=== PATIENT | male | born 1950 | race Caucasian/White ===

== ENCOUNTER 2019-11-30 10:22 | Outpatient (REF) | payer MEDICARE, OTHER, SELFPAY ==
[2019-11-30 13:44] LABS: MANUAL DIFF FLAG NO
[2019-11-30 13:55] LABS: Eosinophils Absolute Auto 0.1 X10*3/uL (0.0-0.4); Eosinophils Percent Auto 2.6 % (0-4); Hematocrit 43.1 % (42-52); Hemoglobin 14.3 g/dl (14.0-18.0); Imm Gran Abs Auto 0.04 X10*3/uL (0.00-0.03); Imm Gran Pct Auto 0.9 % (0.0-0.4); Lymphocytes Absolute Auto 1.1 X10*3/uL (1.2-4.9); Mean Corpuscular HGB Conc 33.2 g/dl (31.0-36.0); Mean Corpuscular Hemoglobin 29.5 pg (27.0-33.0); Mean Corpuscular Volume 88.9 fL (80-98); Mean Platelet Volume 11.1 fL (9.4-12.4); Monocytes Absolute Auto 0.3 X10*3/uL (0.1-1.2); Monocytes Percent Auto 6.9 % (2-11); Neutrophils Absolute Auto 3.1 X10*3/uL (2.0-8.3); Neutrophils Percent Auto 65.6 % (45-73); Platelet Count 180 X10*3/uL (160-400); Red Blood Count 4.85 X10*6/uL (4.60-5.80); Red Cell Distribution Width 12.2 % (11.0-16.0); White Blood Count 4.7 X10*3/uL (4.8-10.8)
[2019-11-30 14:21] LABS: Creatinine Urine 108.57 mg/dL; Microalbum/Creatinine Ratio Ur 9.2 ug/mg cr
[2019-11-30 14:25] LABS: Alanine Aminotransferase 38 U/L (0-40); Albumin Level 4.5 g/dL (3.5-5.0); Alkaline Phosphatase 79 U/L (39-117); Anion Gap 10 (12-20); Aspartate Amino Transferase 24 U/L (5-37); Bilirubin Total 0.6 mg/dL (0.0-1.0); Blood Urea Nitrogen 13 mg/dL (9-16); Carbon Dioxide 31 mmol/L (22-29); Chloride 103 mmol/L (96-108); Estimated Glomerular Filt Rate > 60; Glucose Random 183 mg/dL (60-115); Potassium 4.4 mmol/l (3.3-5.1); Sodium 140 mmol/L (135-145); Total Protein 7.3 g/dL (6.5-8.0)
[2019-11-30 14:29] LABS: Estimated Average Glucose 163 mg/dL; Hemoglobin A1c % 7.3 %
[2019-11-30 14:32] LABS: Calcium 9.2 mg/dL (8.4-10.2)
== END 2019-11-30 10:23 | disposition home or self-care (01) ==
LOC: HO.10HDL 10:22
PROVIDERS: Visit Provider Internal Medicine
DX: E11.9 Type 2 diabetes mellitus without complications (principal); I10 Essential (primary) hypertension; E78.00 Pure hypercholesterolemia, unspecified
CPT/HCPCS: 36415; 80053; 82043; 83036; 85025

== ENCOUNTER 2020-03-14 10:06 | Outpatient (REF) | payer MEDICARE, OTHER, SELFPAY ==
[2020-03-14 13:40] LABS: MANUAL DIFF FLAG NO
[2020-03-14 13:49] LABS: Basophils Percent Auto 0.2 % (0-2); Eosinophils Absolute Auto 0.1 X10*3/uL (0.0-0.4); Eosinophils Percent Auto 1.6 % (0-4); Hematocrit 42.8 % (42-52); Hemoglobin 14.4 g/dl (14.0-18.0); Imm Gran Abs Auto 0.02 X10*3/uL (0.00-0.03); Imm Gran Pct Auto 0.4 % (0.0-0.4); Lymphocytes Absolute Auto 1.3 X10*3/uL (1.2-4.9); Lymphocytes Percent Auto 25.6 % (20-40); Mean Corpuscular HGB Conc 33.6 g/dl (31.0-36.0); Mean Corpuscular Hemoglobin 29.8 pg (27.0-33.0); Mean Corpuscular Volume 88.6 fL (80-98); Mean Platelet Volume 10.8 fL (9.4-12.4); Monocytes Absolute Auto 0.3 X10*3/uL (0.1-1.2); Monocytes Percent Auto 5.9 % (2-11); Neutrophils Absolute Auto 3.2 X10*3/uL (2.0-8.3); Neutrophils Percent Auto 66.3 % (45-73); Platelet Count 167 X10*3/uL (160-400); Red Blood Count 4.83 X10*6/uL (4.60-5.80); Red Cell Distribution Width 11.9 % (11.0-16.0); White Blood Count 4.9 X10*3/uL (4.8-10.8)
[2020-03-14 13:55] LABS: Estimated Average Glucose 180 mg/dL; Hemoglobin A1c % 7.9 %
[2020-03-14 14:09] LABS: Glucose Urine UA NEG (NEG); Leukocyte Esterase Urine NEG (NEG); Nitrite Urine NEG (NEG); PH 5.5 (5.0-8.0); Specific Gravity - Urine >= 1.030 (1.005-1.025); Urine Blood NEG (NEG); Urine Ketones NEG (NEG); Urine Protein NEG (NEG-TRACE)
[2020-03-14 14:13] LABS: Appearance Urine CLEAR; Color Urine YELLOW
[2020-03-14 14:23] LABS: Alanine Aminotransferase 27 U/L (0-40); Albumin Level 4.5 g/dL (3.5-5.0); Alkaline Phosphatase 72 U/L (39-117); Anion Gap 11 (12-20); Aspartate Amino Transferase 17 U/L (5-37); Blood Urea Nitrogen 14 mg/dL (9-16); Calcium 8.8 mg/dL (8.4-10.2); Carbon Dioxide 30 mmol/L (22-29); Chloride 104 mmol/L (96-108); Cholesterol 170 mg/dL; Estimated Glomerular Filt Rate > 60; Glucose Fasting 170 mg/dL (60-99); HDL Cholesterol 38 mg/dL; LDL Cholesterol Calculated 107 mg/dl; Potassium 4.2 mmol/L (3.3-5.1); Sodium 141 mmol/L (135-145); Total Protein 7.1 g/dL (6.5-8.0); Triglycerides 129 mg/dL
[2020-03-14 14:29] LABS: Creatinine Urine 97.33 mg/dL; Microalbum/Creatinine Ratio Ur 10.2 ug/mg cr
[2020-03-14 14:44] LABS: Prostate Specific Antigen Scr 0.34 ng/mL (<0.05-4.0)
== END 2020-03-14 10:07 | disposition home or self-care (01) ==
LOC: HO.10HDL 10:06
PROVIDERS: Visit Provider Internal Medicine
DX: E11.9 Type 2 diabetes mellitus without complications (principal); E78.5 Hyperlipidemia, unspecified; R35.1 Nocturia; Z12.5 Encounter for screening for malignant neoplasm of prostate
CPT/HCPCS: 36415; 80053; 80061; 81003; 82043; 83036; 84153; 85025

== ENCOUNTER 2020-07-18 10:17 | Outpatient (REF) | payer MEDICARE, OTHER, SELFPAY ==
[2020-07-18 12:32] LABS: Estimated Average Glucose 171 mg/dL; Hemoglobin A1c % 7.6 %
[2020-07-18 13:09] LABS: Alanine Aminotransferase 28 U/L (0-40); Albumin Level 4.5 g/dL (3.5-5.0); Alkaline Phosphatase 81 U/L (39-117); Anion Gap 15 (12-20); Aspartate Amino Transferase 20 U/L (5-37); Bilirubin Total 0.6 mg/dL (0.0-1.0); Blood Urea Nitrogen 18 mg/dL (9-16); Calcium 9.3 mg/dL (8.4-10.2); Carbon Dioxide 25 mmol/L (22-29); Chloride 106 mmol/L (96-108); Estimated Glomerular Filt Rate > 60; Glucose Random 170 mg/dL (60-115); Potassium 4.3 mmol/L (3.3-5.1); Sodium 142 mmol/L (135-145); Total Protein 7.3 g/dL (6.5-8.0)
== END 2020-07-18 10:18 | disposition home or self-care (01) ==
LOC: HO.HMGCLDS 10:17
PROVIDERS: PCP Internal Medicine; Visit Provider Internal Medicine
DX: E11.9 Type 2 diabetes mellitus without complications (principal); E55.9 Vitamin D deficiency, unspecified; E78.00 Pure hypercholesterolemia, unspecified
CPT/HCPCS: 36415; 80053; 83036

== ENCOUNTER 2020-10-17 10:16 | Outpatient (REF) | payer MEDICARE, OTHER, SELFPAY ==
[2020-10-17 13:37] LABS: MANUAL DIFF FLAG NO
[2020-10-17 13:42] LABS: Basophils Percent Auto 0.4 % (0-2); Eosinophils Absolute Auto 0.1 X10*3/uL (0.0-0.4); Eosinophils Percent Auto 2.4 % (0-4); Hematocrit 41.1 % (42-52); Hemoglobin 13.7 g/dl (14.0-18.0); Imm Gran Abs Auto 0.04 X10*3/uL (0.00-0.03); Imm Gran Pct Auto 0.8 % (0.0-0.4); Lymphocytes Absolute Auto 1.3 X10*3/uL (1.2-4.9); Lymphocytes Percent Auto 25.5 % (20-40); Mean Corpuscular HGB Conc 33.3 g/dl (31.0-36.0); Mean Corpuscular Hemoglobin 29.3 pg (27.0-33.0); Mean Platelet Volume 10.9 fL (9.4-12.4); Monocytes Absolute Auto 0.4 X10*3/uL (0.1-1.2); Monocytes Percent Auto 7.7 % (2-11); Neutrophils Absolute Auto 3.1 X10*3/uL (2.0-8.3); Neutrophils Percent Auto 63.2 % (45-73); Platelet Count 160 X10*3/uL (160-400); Red Blood Count 4.67 X10*6/uL (4.60-5.80); Red Cell Distribution Width 12.8 % (11.0-16.0); White Blood Count 4.9 X10*3/uL (4.8-10.8)
[2020-10-17 13:57] LABS: Alanine Aminotransferase 33 U/L (0-40); Albumin Level 4.4 g/dL (3.5-5.0); Alkaline Phosphatase 70 U/L (39-117); Anion Gap 11 (12-20); Aspartate Amino Transferase 18 U/L (5-37); Bilirubin Total 0.7 mg/dL (0.0-1.0); Blood Urea Nitrogen 17 mg/dL (9-16); Calcium 9.2 mg/dL (8.4-10.2); Carbon Dioxide 29 mmol/L (22-29); Chloride 101 mmol/L (96-108); Estimated Glomerular Filt Rate > 60; Glucose Random 198 mg/dL (60-115); Potassium 4.5 mmol/L (3.3-5.1); Sodium 136 mmol/L (135-145)
[2020-10-17 14:19] LABS: Estimated Average Glucose 174 mg/dL; Hemoglobin A1c % 7.7 %
[2020-10-17 14:42] LABS: Creatinine Urine 48.64 mg/dL; Microalbumin Urine < 5.0 mg/L
== END 2020-10-17 10:17 | disposition home or self-care (01) ==
LOC: HO.10HDL 10:16
PROVIDERS: Visit Provider Internal Medicine
DX: E11.9 Type 2 diabetes mellitus without complications (principal); E78.00 Pure hypercholesterolemia, unspecified
CPT/HCPCS: 36415; 80053; 82043; 83036; 85025

== ENCOUNTER 2021-03-05 09:18 | Outpatient (REF) | payer MEDICARE, OTHER, SELFPAY ==
[2021-03-05 10:35] LABS: MANUAL DIFF FLAG NO
[2021-03-05 10:44] LABS: Basophils Percent Auto 0.5 % (0-2); Eosinophils Absolute Auto 0.1 X10*3/uL (0.0-0.4); Eosinophils Percent Auto 2.5 % (0-4); Hematocrit 42.7 % (42.0-52.0); Hemoglobin 14.2 g/dl (14.0-18.0); Imm Gran Abs Auto 0.01 X10*3/uL (0.00-0.03); Imm Gran Pct Auto 0.2 % (0.0-0.4); Lymphocytes Absolute Auto 1.4 X10*3/uL (1.2-4.9); Lymphocytes Percent Auto 30.9 % (20-40); Mean Corpuscular HGB Conc 33.3 g/dl (31.0-36.0); Mean Corpuscular Hemoglobin 29.2 pg (27.0-33.0); Mean Corpuscular Volume 87.7 fL (80.0-98.0); Mean Platelet Volume 10.6 fL (9.4-12.4); Monocytes Absolute Auto 0.3 X10*3/uL (0.1-1.2); Neutrophils Absolute Auto 2.6 x10*3/uL (2.0-8.3); Neutrophils Percent Auto 58.9 % (45-73); Platelet Count 162 X10*3/uL (160-400); Red Blood Count 4.87 X10*6/uL (4.60-5.80); Red Cell Distribution Width 12.2 % (11.0-16.0); White Blood Count 4.4 X10*3/uL (4.8-10.8)
[2021-03-05 11:02] LABS: Creatinine Urine 168.14 mg/dL; Microalbum/Creatinine Ratio Ur 8.3 ug/mg cr
[2021-03-05 11:29] LABS: Alanine Aminotransferase 37 U/L (0-40); Albumin Level 4.3 g/dL (3.5-5.0); Alkaline Phosphatase 73 U/L (39-117); Anion Gap 14 (12-20); Aspartate Amino Transferase 21 U/L (5-37); Bilirubin Total 0.9 mg/dL (0.0-1.0); Blood Urea Nitrogen 16 mg/dL (9-16); Calcium 9.2 mg/dL (8.4-10.2); Carbon Dioxide 26 mmol/L (22-29); Chloride 104 mmol/L (96-108); Cholesterol 209 mg/dL; Estimated Glomerular Filt Rate > 60; Glucose Fasting 235 mg/dL (60-99); HDL Cholesterol 41 mg/dL; LDL Cholesterol Calculated 150 mg/dl; Potassium 4.4 mmol/L (3.3-5.1); Sodium 140 mmol/L (135-145); Total Protein 7.2 g/dL (6.5-8.0); Triglycerides 94 mg/dL
[2021-03-05 11:35] LABS: Estimated Average Glucose 186 mg/dL; Hemoglobin A1c % 8.1 %
[2021-03-05 11:54] LABS: Prostate Specific Antigen Scr 0.29 ng/mL (<0.05-4.0)
== END 2021-03-05 09:19 | disposition home or self-care (01) ==
LOC: HO.10HDL 09:18
PROVIDERS: Visit Provider Internal Medicine
DX: Z12.5 Encounter for screening for malignant neoplasm of prostate (principal); E11.9 Type 2 diabetes mellitus without complications; E78.00 Pure hypercholesterolemia, unspecified
CPT/HCPCS: 36415; 80053; 80061; 82043; 83036; 84153; 85025

== ENCOUNTER 2021-06-23 10:37 | Outpatient (REF) | payer MEDICARE, OTHER, SELFPAY ==
[2021-06-23 13:53] LABS: MANUAL DIFF FLAG NO
[2021-06-23 13:59] LABS: Basophils Percent Auto 0.5 % (0-2); Eosinophils Absolute Auto 0.1 X10*3/uL (0.0-0.4); Eosinophils Percent Auto 1.4 % (0-4); Hematocrit 42.8 % (42.0-52.0); Hemoglobin 14.3 g/dl (14.0-18.0); Imm Gran Abs Auto 0.03 X10*3/uL (0.00-0.03); Imm Gran Pct Auto 0.7 % (0.0-0.4); Lymphocytes Absolute Auto 1.2 X10*3/uL (1.2-4.9); Lymphocytes Percent Auto 28.8 % (20-40); Mean Corpuscular HGB Conc 33.4 g/dl (31.0-36.0); Mean Corpuscular Hemoglobin 29.7 pg (27.0-33.0); Mean Corpuscular Volume 88.8 fL (80.0-98.0); Mean Platelet Volume 11.2 fL (9.4-12.4); Monocytes Absolute Auto 0.3 X10*3/uL (0.1-1.2); Monocytes Percent Auto 7.1 % (2-11); Neutrophils Absolute Auto 2.6 x10*3/uL (2.0-8.3); Neutrophils Percent Auto 61.5 % (45-73); Platelet Count 173 X10*3/uL (160-400); Red Blood Count 4.82 X10*6/uL (4.60-5.80); Red Cell Distribution Width 12.1 % (11.0-16.0); White Blood Count 4.2 X10*3/uL (4.8-10.8)
[2021-06-23 14:11] LABS: Estimated Average Glucose 171 mg/dL; Hemoglobin A1c % 7.6 %
[2021-06-23 14:23] LABS: Alanine Aminotransferase 35 U/L (0-40); Albumin Level 4.4 g/dL (3.5-5.0); Alkaline Phosphatase 75 U/L (39-117); Anion Gap 12 (12-20); Aspartate Amino Transferase 19 U/L (5-37); Bilirubin Total 0.7 mg/dL (0.0-1.0); Blood Urea Nitrogen 18 mg/dL (9-16); Calcium 9.7 mg/dL (8.4-10.2); Carbon Dioxide 28 mmol/L (22-29); Chloride 105 mmol/L (96-108); Cholesterol 171 mg/dL; Estimated Glomerular Filt Rate > 60; Glucose Random 208 mg/dL (60-115); HDL Cholesterol 40 mg/dL; LDL Cholesterol Calculated 114 mg/dl; Potassium 4.5 mmol/L (3.3-5.1); Sodium 140 mmol/L (135-145); Total Protein 7.3 g/dL (6.5-8.0); Triglycerides 89 mg/dL
[2021-06-23 14:27] LABS: Creatinine Urine 131.19 mg/dL
[2021-06-23 14:47] LABS: Vitamin B12 549 pg/mL (200-900)
== END 2021-06-23 10:38 | disposition home or self-care (01) ==
LOC: HO.HMGCLDS 10:37
PROVIDERS: Visit Provider Internal Medicine
DX: E11.9 Type 2 diabetes mellitus without complications (principal); E78.00 Pure hypercholesterolemia, unspecified
CPT/HCPCS: 36415; 80053; 80061; 82043; 82607; 83036; 85025

== ENCOUNTER 2021-11-20 10:11 | Outpatient (REF) | payer MEDICARE, OTHER, SELFPAY ==
[2021-11-20 11:17] LABS: MANUAL DIFF FLAG NO
[2021-11-20 11:35] LABS: Basophils Percent Auto 0.7 % (0-2); Eosinophils Absolute Auto 0.1 X10*3/uL (0.0-0.4); Eosinophils Percent Auto 2.4 % (0-4); Hematocrit 41.9 % (42.0-52.0); Hemoglobin 14.3 g/dl (14.0-18.0); Imm Gran Abs Auto 0.02 X10*3/uL (0.00-0.03); Imm Gran Pct Auto 0.4 % (0.0-0.4); Lymphocytes Absolute Auto 1.2 X10*3/uL (1.2-4.9); Lymphocytes Percent Auto 26.5 % (20-40); Mean Corpuscular HGB Conc 34.1 g/dl (31.0-36.0); Mean Corpuscular Hemoglobin 29.8 pg (27.0-33.0); Mean Corpuscular Volume 87.3 fL (80.0-98.0); Mean Platelet Volume 10.9 fL (9.4-12.4); Monocytes Absolute Auto 0.3 X10*3/uL (0.1-1.2); Monocytes Percent Auto 7.4 % (2-11); Neutrophils Absolute Auto 2.9 x10*3/uL (2.0-8.3); Neutrophils Percent Auto 62.6 % (45-73); Platelet Count 163 X10*3/uL (160-400); Red Cell Distribution Width 12.1 % (11.0-16.0); White Blood Count 4.6 X10*3/uL (4.8-10.8)
[2021-11-20 11:42] LABS: Estimated Average Glucose 200 mg/dL; Hemoglobin A1c % 8.6 %
[2021-11-20 12:00] LABS: Creatinine Urine 91.26 mg/dL; Microalbum/Creatinine Ratio Ur 5.4 ug/mg cr
[2021-11-20 12:03] LABS: Alanine Aminotransferase 33 U/L (0-40); Albumin Level 4.5 g/dL (3.5-5.0); Alkaline Phosphatase 75 U/L (39-117); Anion Gap 13 (12-20); Aspartate Amino Transferase 20 U/L (5-37); Bilirubin Total 0.7 mg/dL (0.0-1.0); Blood Urea Nitrogen 15 mg/dL (9-16); Calcium 9.4 mg/dL (8.4-10.2); Carbon Dioxide 29 mmol/L (22-29); Chloride 101 mmol/L (96-108); Estimated Glomerular Filt Rate > 60; Glucose Random 199 mg/dL (60-115); Potassium 4.4 mmol/L (3.3-5.1); Sodium 139 mmol/L (135-145); Total Protein 7.1 g/dL (6.5-8.0)
== END 2021-11-20 10:12 | disposition home or self-care (01) ==
LOC: HO.HMGCLDS 10:11
PROVIDERS: PCP Internal Medicine; Visit Provider Internal Medicine
DX: E78.00 Pure hypercholesterolemia, unspecified (principal); E11.40 Type 2 diabetes mellitus with diabetic neuropathy, unspecified
CPT/HCPCS: 36415; 80053; 82043; 83036; 85025

== ENCOUNTER 2022-02-27 07:37 | Outpatient (REF) | payer MEDICARE, OTHER, SELFPAY ==
[2022-02-27 11:30] LABS: Anion Gap 9 (12-20); Blood Urea Nitrogen 11 mg/dL (9-16); Carbon Dioxide 31 mmol/L (22-29); Chloride 104 mmol/L (96-108); Estimated Glomerular Filt Rate > 60; Glucose Random 254 mg/dL (60-115); Sodium 140 mmol/L (135-145)
[2022-02-27 11:40] LABS: Estimated Average Glucose 223 mg/dL; Hemoglobin A1c % 9.4 %; Total Hemoglobin (HGBA1C) 3621.3587 umol/L
== END 2022-02-27 07:38 | disposition home or self-care (01) ==
LOC: HO.HMGCLDS 07:37
PROVIDERS: PCP Internal Medicine; Visit Provider Internal Medicine
DX: E11.9 Type 2 diabetes mellitus without complications (principal); E78.00 Pure hypercholesterolemia, unspecified
CPT/HCPCS: 36415; 80048; 83036

== ENCOUNTER 2022-03-06 09:28 | Outpatient (REF) | payer MEDICARE, OTHER, SELFPAY ==
--- NOTE | ~2022-03-06 | XR_ITS ---
EXAMINATION: XR KNEE, LEFT CLINICAL INFORMATION: Left knee pain and swelling COMPARISON: None TECHNIQUE: Four views of the left knee. FINDINGS: There is narrowing of the medial joint space compartment with some articular surface irregularity. There is a region of lucency about the distal medial femoral condyle which may represent an osteochondral defect donor site however I do not see a fragment on the provided imaging. There is prominent spurring at the patellofemoral joint. There is a left knee effusion. No acute fracture or dislocation evident. XR/XR knee LT 4V IMPRESSION: Degenerative change of the medial and patellofemoral joint spaces. Left knee effusion.
== END 2022-03-06 09:29 | disposition home or self-care (01) ==
LOC: HO.HMGCX 09:28
PROVIDERS: PCP Internal Medicine; Visit Provider Internal Medicine
DX: M25.562 Pain in left knee (principal)
CPT/HCPCS: 73564

== ENCOUNTER 2022-04-09 | Outpatient (REF) | payer MEDICARE, OTHER, SELFPAY ==
--- NOTE | ~2022-04-09 | XR_ITS ---
EXAMINATION: XR KNEE AP STANDING XR KNEE, LEFT AXIAL CLINICAL INFORMATION: Pain. COMPARISON: Radiographs dated 03/06/2022. TECHNIQUE: AP bilateral standing view of the knees was obtained. An axial view of the left knee was obtained. FINDINGS: Bony alignment and mineralization are normal. There is moderately severe narrowing of the bilateral medial joint space space compartments. There is mild narrowing of the lateral left joint space compartment. The left patellofemoral compartment is well-maintained. There is peripheral osteophyte formation of the bilateral lateral and medial joint space compartments and of the left patellofemoral compartment. No fracture or dislocation is seen. There is a mild bilateral valgus configuration. No foreign body is noted. XR/XR knee standing BI IMPRESSION: 1. There is tricompartment osteoarthritic change of the left knee, most pronounced of the medial joint space compartment, where it is severe. 2. There is moderately severe osteoarthritic change of the medial joint space compartment of the right knee. 3. There is a mild bilateral varus configuration.
--- NOTE | ~2022-04-09 | XR_ITS ---
EXAMINATION: XR KNEE AP STANDING XR KNEE, LEFT AXIAL CLINICAL INFORMATION: Pain. COMPARISON: Radiographs dated 03/06/2022. TECHNIQUE: AP bilateral standing view of the knees was obtained. An axial view of the left knee was obtained. FINDINGS: Bony alignment and mineralization are normal. There is moderately severe narrowing of the bilateral medial joint space space compartments. There is mild narrowing of the lateral left joint space compartment. The left patellofemoral compartment is well-maintained. There is peripheral osteophyte formation of the bilateral lateral and medial joint space compartments and of the left patellofemoral compartment. No fracture or dislocation is seen. There is a mild bilateral valgus configuration. No foreign body is noted. XR/XR knee LT 1V IMPRESSION: 1. There is tricompartment osteoarthritic change of the left knee, most pronounced of the medial joint space compartment, where it is severe. 2. There is moderately severe osteoarthritic change of the medial joint space compartment of the right knee. 3. There is a mild bilateral varus configuration.
== END 2022-04-09 00:01 | disposition home or self-care (01) ==
LOC: HO.HOSX
PROVIDERS: Visit Provider Physician Assistant
DX: M17.12 Unilateral primary osteoarthritis, left knee (principal)
CPT/HCPCS: 20610; 73560; 73565; 99202; J1020

== ENCOUNTER 2022-06-01 11:17 | Outpatient (REF) | payer MEDICARE, OTHER, SELFPAY ==
[2022-06-01 14:33] LABS: Estimated Average Glucose 189 mg/dL; Hemoglobin A1c % 8.2 %
[2022-06-01 15:12] LABS: Anion Gap 16 (12-20); Blood Urea Nitrogen 18 mg/dL (9-16); Calcium 9.3 mg/dL (8.4-10.2); Carbon Dioxide 27 mmol/L (22-29); Chloride 104 mmol/L (96-108); Estimated Glomerular Filt Rate > 60; Glucose Random 165 mg/dL (60-115); Potassium 4.7 mmol/L (3.3-5.1); Sodium 142 mmol/L (135-145)
== END 2022-06-01 11:18 | disposition home or self-care (01) ==
LOC: HO.HMGCLDS 11:17
PROVIDERS: PCP Internal Medicine; Visit Provider Internal Medicine
DX: E11.9 Type 2 diabetes mellitus without complications (principal); I10 Essential (primary) hypertension; E78.00 Pure hypercholesterolemia, unspecified
CPT/HCPCS: 36415; 80048; 83036

== ENCOUNTER 2022-06-10 10:48 | Outpatient (REF) | payer MEDICARE, OTHER, SELFPAY ==
[2022-06-10 13:39] LABS: MANUAL DIFF FLAG NO
[2022-06-10 13:44] LABS: Basophils Percent Auto 0.7 % (0-2); Eosinophils Absolute Auto 0.1 X10*3/uL (0.0-0.4); Eosinophils Percent Auto 1.2 % (0-4); Hematocrit 43.4 % (42.0-52.0); Hemoglobin 14.6 g/dl (14.0-18.0); Imm Gran Abs Auto 0.03 X10*3/uL (0.00-0.03); Imm Gran Pct Auto 0.7 % (0.0-0.4); Mean Corpuscular HGB Conc 33.6 g/dl (31.0-36.0); Mean Corpuscular Hemoglobin 30.1 pg (27.0-33.0); Mean Corpuscular Volume 89.5 fL (80.0-98.0); Monocytes Absolute Auto 0.4 X10*3/uL (0.1-1.2); Monocytes Percent Auto 10.6 % (2-11); Neutrophils Absolute Auto 2.5 x10*3/uL (2.0-8.3); Neutrophils Percent Auto 61.8 % (45-73); Platelet Count 168 X10*3/uL (160-400); Red Blood Count 4.85 X10*6/uL (4.60-5.80); Red Cell Distribution Width 12.2 % (11.0-16.0)
[2022-06-10 13:58] LABS: Alanine Aminotransferase 36 U/L (0-40); Albumin Level 4.3 g/dL (3.5-5.0); Alkaline Phosphatase 79 U/L (39-117); Anion Gap 12 (12-20); Aspartate Amino Transferase 18 U/L (5-37); Bilirubin Total 0.9 mg/dL (0.0-1.0); Blood Urea Nitrogen 14 mg/dL (9-16); C Reactive Protein 0.34 mg/dL (< or = 0.50); Calcium 9.1 mg/dL (8.4-10.2); Carbon Dioxide 29 mmol/L (22-29); Chloride 105 mmol/L (96-108); Estimated Glomerular Filt Rate > 60; Glucose Random 249 mg/dL (60-115); Potassium 4.8 mmol/L (3.3-5.1); Sodium 141 mmol/L (135-145); Total Protein 6.8 g/dL (6.5-8.0)
[2022-06-10 14:12] LABS: D Dimer High Sensitivity 547 NG/ML
[2022-06-10 14:15] LABS: Estimated Average Glucose 194 mg/dL; Hemoglobin A1c % 8.4 %
[2022-06-10 14:38] LABS: Troponin-I High Sensitivity 5.6 ng/L (<3.5-35.0)
== END 2022-06-10 10:49 | disposition home or self-care (01) ==
LOC: HO.10HDL 10:48
PROVIDERS: Visit Provider Internal Medicine
DX: Z13.89 Encounter for screening for other disorder (principal)
CPT/HCPCS: 36415; 80053; 82550; 83036; 84484; 85025; 85379; 86140

== ENCOUNTER 2022-06-10 17:11 | Emergency (ER) | payer MEDICARE, OTHER, SELFPAY ==
--- NOTE | ~2022-06-10 | CT_ITS ---
EXAMINATION: CT HEAD WITHOUT CONTRAST CLINICAL INFORMATION: Dizziness. COMPARISON: None available. TECHNIQUE: Contiguous axial imaging was performed from the skull base to vertex without intravenous administration of contrast. This CT examination was performed using dose optimization techniques as appropriate, variously including the following: *Automated exposure control. *Adjustment of mA and/or kV according to patient size (this includes techniques or standardized protocols for targeted exams where dose is matched to indication/reason for exam; i.e. extremities or head). *Use of iterative reconstruction technique. DLP: 784 mGy-cm FINDINGS: There is no evidence of acute intracranial hemorrhage or edematous territorial infarction. Solitario-white matter differentiation is preserved. Scattered and partially confluent hypoattenuation in the periventricular and deep white matter are consistent with moderate microangiopathy. Septum pellucidum cyst, measuring up to 2 cm in diameter. Otherwise, proportional prominence of the ventricles and sulcal spaces without evidence of obstructive hydrocephalus. No abnormal mass effect or midline shift. No extra-axial fluid collections. No acute soft tissue or osseous abnormalities. Mild mucosal thickening of the paranasal sinuses. The mastoid air cells and middle ear cavities are clear. Mild degenerative arthropathy of the temporomandibular joints. CT/CT head/brain wo IV con IMPRESSION: 1. No evidence of acute intracranial hemorrhage or edematous territorial infarction. 2. Moderate underlying microangiopathy and generalized cerebral volume loss.
--- NOTE | ~2022-06-10 | XR_ITS ---
EXAMINATION: XR CHEST CLINICAL INFORMATION: Chest pain COMPARISON: Chest x-ray 06/26/2005 TECHNIQUE: Frontal view of the chest was obtained. FINDINGS: No significant abnormality is noted involving the heart, lungs, mediastinum, bony thorax or soft tissues. XR/XR chest 1V IMPRESSION: Unremarkable chest examination.
--- NOTE | ~2022-06-10 | CT_ITS ---
EXAMINATION: CT ANGIOGRAM OF THE CHEST WITH AND WITHOUT CONTRAST (CT PULMONARY ANGIOGRAM FOR PE) CLINICAL INFORMATION: Reason for Exam + dimer out patient near syncope COMPARISON: None available. TECHNIQUE: Prior to contrast administration, noncontrast localization images were obtained. Subsequently, multidetector volumetric imaging was performed from the thoracic inlet to below the diaphragms following the administration of 80 mL Omnipaque 350 intravenous contrast. No contrast reaction reported Sagittal, coronal, and MIP oblique sagittal reformatted images were obtained on the CT workstation, uploaded to PACS, and reviewed. This CT examination was performed using dose optimization techniques as appropriate, variously including the following: *Automated exposure control *Adjustment of mA and/or kV according to patient size (this includes techniques or standardized protocols for targeted exams where dose is matched to indication/reason for exam; i.e. extremities or head) *Use of iterative reconstruction technique Total exam dose-length product 428 mGy-cm FINDINGS: QUALITY OF STUDY/CONTRAST BOLUS: Satisfactory. PULMONARY ARTERIES: There is good opacification of pulmonary artery and its branches without any intraluminal filling defect or narrowing. THORACIC AORTA: No evidence of aneurysm or dissection. LUNG: No focal consolidation, nodules or masses. PLEURA: No pleural effusion or pneumothorax. MEDIASTINUM: Heart size enlarged. There is no pericardial effusion. No hilar or mediastinal lymph nodes. Central trachea and the bronchi are widely patent. No evidence of septal bowing or right heart strain. CORONARY ARTERY CALCIFICATION: None visualized on this study. CHEST WALL/AXILLA: No axillary or internal mammary lymphadenopathy. OSSEOUS STRUCTURES: No aggressive lytic or sclerotic process seen. There is mild ventral spondylosis and degenerative disc changes throughout dorsal spine. UPPER ABDOMEN: Small hypodense areas are seen in the liver, too small to correctly characterize. Otherwise rest the liver, spleen, pancreas and bilateral adrenal glands are unremarkable. No reflux of contrast into the hepatic veins to suggest elevated right heart pressures. CT/CT angio chest PE protocol IMPRESSION: 1. No evidence of PE. 2. No evidence of aortic dissection or aneurysm. 3. The lungs are clear. VTE: negative
[2022-06-10 18:10] VITALS: BP 175/85; PULSE 74; RESP 18; TEMP 37; O2SAT 95; BMI 31.1
--- NOTE | 2022-06-10 18:58 | ECG_ITS ---
Test Reason : SOB Blood Pressure : / mmHG Vent. Rate : 071 BPM Atrial Rate : 071 BPM P-R Int : 164 ms QRS Dur : 096 ms QT Int : 388 ms P-R-T Axes : 034 -50 031 degrees QTc Int : 421 ms Sinus rhythm with marked sinus arrhythmia Left anterior fascicular block Abnormal ECG No previous ECGs available Referred By: Leo Fontaine Electronically Signed By:James Garcia
--- NOTE | 2022-06-10 19:00 | ED.GENADULT ---
HPI - General Adult General Chief complaint: General Medical <RUSS Martinez - Last Filed: 06/10/22 19:01> Stated complaint: Sent by for CT Scane <RUSS Martinez - Last Filed: 06/10/22 19:01> Time Seen by Provider: 06/10/22 22:14 <RUSS Martinez - Last Filed: 06/10/22 19:01> Source: patient, RN notes reviewed and old records reviewed <Brennen Oliveira - Last Filed: 06/10/22 23:15> Mode of arrival: ambulatory <Brennen Oliveira - Last Filed: 06/10/22 23:15> Limitations: no limitations <Brennen Oliveira - Last Filed: 06/10/22 23:15> History of Present Illness HPI narrative: 71-year-old male with past medical history significant for diabetes, osteoarthritis presents for evaluation of ?I need a CT scan to check for PE. ? Patient reports he has felt unwell for the last week. He has had several episodes where he gets nauseous, lightheaded, short of breath and he nearly passes out. This has not happened the last few days. However he saw his primary doctor last week who ordered blood test. The patient was told to come to the emergency department because ?my D-dimer was high and he wants to make sure I do not have a blood clot. ? The patient has not had any syncopal episodes and he has never had any chest pain in the last month despite the symptoms Currently reports that he feels well but has a mild headache He reports that his D-dimer was 547 as an outpatient <Brennen Oliveira - Last Filed: 06/10/22 23:15> Related Data Home medications: Home Medications Medication Instructions Recorded Confirmed amoxicillin 875 mg-potassium tab PO 04/09/22 clavulanate 125 mg tablet atorvastatin 40 mg tablet mg PO 04/09/22 glipizide 5 mg tablet, extended mg PO 04/09/22 release 24 hr metformin 500 mg tablet mg PO 04/09/22 olanzapine 5 mg tablet mg PO 04/09/22 sertraline 100 mg tablet mg PO 04/09/22 <RUSS Martinez Last Filed: 06/10/22 19:01> Allergies/adverse reactions: Allergies Allergy/AdvReac Type Severity Reaction Status Date / Time No Known Allergies Allergy Verified 06/10/22 18:15 <RUSS Martinez - Last Filed: 06/10/22 19:01> Review of Systems Constitutional: Constitutional: Reports fatigue, Denies fever(s), Reports headache(s), Reports malaise and Reports weakness <Brennen Oliveira - Last Filed: 06/10/22 23:15> ENT: Reports dizziness and Reports headache(s) <Brennen Oliveira - Last Filed: 06/10/22 23:15> Cardiovascular: Cardiovascular: Denies chest pain, Denies chest pain at rest, Denies chest pain with activity, Denies syncope, Denies rapid heart rate, Denies leg edema, Reports lightheadedness and Denies dyspnea <Brennen Oliveira - Last Filed: 06/10/22 23:15> Respiratory: Respiratory: Denies cough and Denies dyspnea <Brennen Oliveira - Last Filed: 06/10/22 23:15> Gastrointestinal: Gastrointestinal: Denies abdominal pain, Reports nausea and Reports vomiting <Brennen Oliveira - Last Filed: 06/10/22 23:15> Musculoskeletal: Musculoskeletal: Reports myalgias, Denies arthralgias and Denies joint swelling <Brennen Oliveira - Last Filed: 06/10/22 23:15> Neurologic: Reports dizziness, Denies syncope, Reports headache(s) and Reports weakness <Brennen Oliveira - Last Filed: 06/10/22 23:15> Endocrine: Endocrine: Reports fatigue <Brennen Oliveira - Last Filed: 06/10/22 23:15> [facility] Past Medical History Medical History: Medical History (Updated 06/10/22 @ 23:15 by Brennen Oliveira) History of high cholesterol Hx of diabetes mellitus <RUSS Martinez - Last Filed: 06/10/22 19:01> Social History Social History: Social History (Updated 04/09/22 @ 08:24 by Renetta Mayer) Alcohol intake: never Patient Tobacco Use Status: Never used Tobacco Smoked in Last 30 Days: No Use of substances other than those prescribed or required for medical reasons: No Advance Directives: No Advance Directives Information Provided: Yes Current occupational status: retired Current occupation: right hand dominant <RUSS Martinez - Last Filed: 06/10/22 19:01> Physical Exam ED Vital Signs: Vital Signs - 24 hr 06/10/22 18:10 06/10/22 22:18 06/10/22 22:43 Temperature 98.6 F 98.6 F Pulse Rate 74 81 71 Respiratory Rate 18 16 Blood Pressure 175/85 H 154/94 H 174/90 H Pulse Oximetry 95 97 Oxygen Delivery Method Room Air Room Air 06/10/22 22:45 06/10/22 22:47 Temperature Pulse Rate 69 82 Respiratory Rate Blood Pressure 162/90 H 164/92 H Pulse Oximetry Oxygen Delivery Method BMI result Body Mass Index 31.1 <RUSS Martinez - Last Filed: 06/10/22 19:01> Vital Signs - 24 hr 06/10/22 18:10 06/10/22 22:18 06/10/22 22:43 Temperature 98.6 F 98.6 F Pulse Rate 74 81 71 Respiratory Rate 18 16 Blood Pressure 175/85 H 154/94 H 174/90 H Pulse Oximetry 95 97 Oxygen Delivery Method Room Air Room Air 06/10/22 22:45 06/10/22 22:47 Temperature Pulse Rate 69 82 Respiratory Rate Blood Pressure 162/90 H 164/92 H Pulse Oximetry Oxygen Delivery Method BMI result Body Mass Index 31.1 <Brennen Oliveira - Last Filed: 06/10/22 23:15> Const General: healthy appearing, comfortable, no acute distress, alert and awake <Brennen Oliveira - Last Filed: 06/10/22 23:15> Nutritional Appearance: well nourished <Brennen Oliveira - Last Filed: 06/10/22 23:15> Orientation/consciousness: patient oriented x3 <Brennen Oliveira - Last Filed: 06/10/22 23:15> HENMT Head: Yes normocephalic and Yes atraumatic <Brennen Oliveira - Last Filed: 06/10/22 23:15> Eyes Eyelids: Yes eyelids normal <Brennen Oliveira - Last Filed: 06/10/22 23:15> Conjunctivae: conjunctivae normal < Last Filed: 06/10/22 23:15> Sclerae: sclerae normal < Last Filed: 06/10/22 23:15> Corneas: corneas normal < Last Filed: 06/10/22 23:15> Pupils: Equal, round and reactive pupils present < Last Filed: 06/10/22 23:15> EOM: EOMs intact bilaterally < Last Filed: 06/10/22 23:15> Neck Neck: Yes full ROM < Last Filed: 06/10/22 23:15> Resp Effort & Inspection: normal respiratory effort, able to speak in complete sentences, no audible wheezes and not labored < Last Filed: 06/10/22 23:15> Auscultation: clear to auscultation bilaterally < Last Filed: 06/10/22 23:15> Cardio Rate: regular rate < Last Filed: 06/10/22 23:15> Rhythm: regular rhythm < Last Filed: 06/10/22 23:15> GI Inspection: No distended < Last Filed: 06/10/22 23:15> Palpation (GI): Soft to palpation, not firm, nontender, no guarding and not rigid < Last Filed: 06/10/22 23:15> Auscultation: normoactive bowel sounds < Last Filed: 06/10/22 23:15> Skin General skin exam: no rashes or lesions noted and elasticity normal < Last Filed: 06/10/22 23:15> Neuro General: patient oriented x3 < Last Filed: 06/10/22 23:15> Cranial nerves: Yes CN's II-XII intact bilaterally, Yes Equal, round and reactive pupils present and Yes Bilaterally intact EOM present < - Last Filed: 06/10/22 23:15> Cognition (Neuro): normal cognition <Brennen Oliveira - Last Filed: 06/10/22 23:15> Coordination: [id number] test normal and [id number] test normal <Brennen Oliveira - Last Filed: 06/10/22 23:15> Extrem Other: Moving all extremities well without any obvious deformities <Brennen Weinbergy - Last Filed: 06/10/22 23:15> Course Course Course Narrative: This is an RME: Additional HPI, ROS, PE not included below will be deferred to primary provider. 71-year-old male history of osteoarthritis, hyperlipidemia, diabetes presents with dizziness, nausea, vomiting, near syncopal episodes for the past 2-3 days, coming from his PCPs office where he had a positive D-dimer 547. Requesting CTA to rule out PE Physical exam benign Plan labs, CTA, EKG, troponin <RUSS Martinez - Last Filed: 06/10/22 19:01> Medications Administered Discontinued Medications Generic Name Dose Route Start Last Admin Trade Name Freq PRN Reason Stop Dose Admin Iohexol 100 ml 06/10/22 22:05 06/10/22 22:05 Iohexol 350 Mg/Ml 100 Ml Infus..Btl IV 06/10/22 22:06 65 ml ONCE ONE Administration <RUSS Martinez - Last Filed: 06/10/22 19:01> Medications Administered Discontinued Medications Generic Name Dose Route Start Last Admin Trade Name Freq PRN Reason Stop Dose Admin Iohexol 100 ml 06/10/22 22:05 06/10/22 22:05 Iohexol 350 Mg/Ml 100 Ml Infus..Btl IV 06/10/22 22:06 65 ml ONCE ONE Administration <Brennen Oliveira - Last Filed: 06/10/22 23:15> Medical Decision Making Medical Decision Making MDM Narrative: 71-year-old male presents for evaluation of episodes of near-syncope, lightheadedness and vomiting. Currently he is not experiencing these episodes but he he had elevated D-dimers an outpatient. CTA negative for PE or pneumonia. Labs were without any significant abnormalities. EKG is sinus rhythm with arrhythmia 71 beats per minute. No ischemic changes. Patient has had negative troponins x2 in denies any chest pain previously or currently. He did test positive for COVID-19 which can explain his symptoms as well as his elevated D-dimer. This was discussed with the patient. He was fairly hypertensive as well but denies any chest pain or headache. He is not on antihypertensive medication. We will defer this treatment to his primary doctor <Brennen Oliveira - Last Filed: 06/10/22 23:15> Differential Diagnosis Hypertension PE ACS Arrhythmia Dehydration Near-syncope Viral syndrome COVID-19 <Brennen Roxanne - Last Filed: 06/10/22 23:15> Lab Data MDM Lab Attestation statement: I reviewed the patient's lab results. <Brennen Oliveira - Last Filed: 06/10/22 23:15> Result Diagrams: 06/10/22 19:54 06/10/22 19:54 <RUSS Martinez - Last Filed: 06/10/22 19:01> Labs: Lab Results 06/10/22 06/10/22 06/10/22 Range/Units 19:54 19:54 19:54 WBC 4.8 (4.8-10.8) X10*3/uL RBC 4.77 (4.60-5.80) X10*6/uL Hgb 14.3 (14.0-18.0) g/dl Hct 41.7 L (42.0-52.0) % MCV 87.4 (80.0-98.0) fL MCH 30.0 (27.0-33.0) pg MCHC 34.3 (31.0-36.0) g/dl RDW 12.0 (11.0-16.0) % Plt Count 179 (160-400) X10*3/uL MPV 10.1 (9.4-12.4) fL Immature Gran % (Auto) 0.4 (0.0-0.4) % Neut % (Auto) 63.9 (45-73) % Lymph % (Auto) 23.4 (20-40) % Hinds % (Auto) 10.0 (2-11) % Eos % (Auto) 1.7 (0-4) % Baso % (Auto) 0.6 (0-2) % Lymph # (Auto) 1.1 L (1.2-4.9) X10*3/uL Hinds # (Auto) 0.5 (0.1-1.2) X10*3/uL Eos # (Auto) 0.1 (0.0-0.4) X10*3/uL Baso # (Auto) 0.0 (0.0-0.2) X10*3/uL Abs Immat Gran (auto) 0.02 (0.00-0.03) X10*3/uL Absolute Neuts (auto) 3.1 (2.0-8.3) x10*3/uL Absolute Nucleated RBC 0.000 (0.0-0.012) X10*3/uL Nucleated RBC % (auto) 0.0 (0.0-0.2) /100WBC Sodium 141 (135-145) mmol/L Potassium 4.2 (3.3-5.1) mmol/L Chloride 104 (96-108) mmol/L Carbon Dioxide 27 (22-29) mmol/L Anion Gap 14 (12-20) BUN 18 H (9-16) mg/dL Creatinine 0.80 (0.5-1.4) mg/dL Estim Creat Clear Calc 101.0 Estimated GFR > 60 Random Glucose 243 H (60-115) mg/dL Calcium 9.4 (8.4-10.2) mg/dL Magnesium 1.7 (1.6-2.6) mg/dL Total Bilirubin 0.4 (0.0-1.0) mg/dL AST 19 (5-37) U/L ALT 38 (0-40) U/L Alkaline Phosphatase 80 (39-117) U/L Troponin I High Sens 7.6 (<3.5-35.0) ng/L Total Protein 7.1 (6.5-8.0) g/dL Albumin 4.5 (3.5-5.0) g/dL COVID-19 ([facility]) (Negative) COVID-19 Clin Com 06/10/22 06/10/22 Range/Units 19:54 21:19 WBC (4.8-10.8) X10*3/uL RBC (4.60-5.80) X10*6/uL Hgb (14.0-18.0) g/dl Hct (42.0-52.0) % MCV (80.0-98.0) fL MCH (27.0-33.0) pg MCHC (31.0-36.0) g/dl RDW (11.0-16.0) % Plt Count (160-400) X10*3/uL MPV (9.4-12.4) fL Immature Gran % (Auto) (0.0-0.4) % Neut % (Auto) (45-73) % Lymph % (Auto) (20-40) % Hinds % (Auto) (2-11) % Eos % (Auto) (0-4) % Baso % (Auto) (0-2) % Lymph # (Auto) (1.2-4.9) X10*3/uL Hinds # (Auto) (0.1-1.2) X10*3/uL Eos # (Auto) (0.0-0.4) X10*3/uL Baso # (Auto) (0.0-0.2) X10*3/uL Abs Immat Gran (auto) (0.00-0.03) X10*3/uL Absolute Neuts (auto) (2.0-8.3) x10*3/uL Absolute Nucleated RBC (0.0-0.012) X10*3/uL Nucleated RBC % (auto) (0.0-0.2) /100WBC Sodium (135-145) mmol/L Potassium (3.3-5.1) mmol/L Chloride (96-108) mmol/L Carbon Dioxide (22-29) mmol/L Anion Gap (12-20) BUN (9-16) mg/dL Creatinine (0.5-1.4) mg/dL Estim Creat Clear Calc Estimated GFR Random Glucose (60-115) mg/dL Calcium (8.4-10.2) mg/dL Magnesium (1.6-2.6) mg/dL Total Bilirubin (0.0-1.0) mg/dL AST (5-37) U/L ALT (0-40) U/L Alkaline Phosphatase (39-117) U/L Troponin I High Sens 7.0 (<3.5-35.0) ng/L Total Protein (6.5-8.0) g/dL Albumin (3.5-5.0) g/dL COVID-19 ([facility]) Positive A (Negative) COVID-19 Clin Com See Note <RUSS Martinez - Last Filed: 06/10/22 19:01> Lab Results 06/10/22 06/10/22 06/10/22 Range/Units 19:54 19:54 19:54 WBC 4.8 (4.8-10.8) X10*3/uL RBC 4.77 (4.60-5.80) X10*6/uL Hgb 14.3 (14.0-18.0) g/dl Hct 41.7 L (42.0-52.0) % MCV 87.4 (80.0-98.0) fL MCH 30.0 (27.0-33.0) pg MCHC 34.3 (31.0-36.0) g/dl RDW 12.0 (11.0-16.0) % Plt Count 179 (160-400) X10*3/uL MPV 10.1 (9.4-12.4) fL Immature Gran % (Auto) 0.4 (0.0-0.4) % Neut % (Auto) 63.9 (45-73) % Lymph % (Auto) 23.4 (20-40) % Hinds % (Auto) 10.0 (2-11) % Eos % (Auto) 1.7 (0-4) % Baso % (Auto) 0.6 (0-2) % Lymph # (Auto) 1.1 L (1.2-4.9) X10*3/uL Hinds # (Auto) 0.5 (0.1-1.2) X10*3/uL Eos # (Auto) 0.1 (0.0-0.4) X10*3/uL Baso # (Auto) 0.0 (0.0-0.2) X10*3/uL Abs Immat Gran (auto) 0.02 (0.00-0.03) X10*3/uL Absolute Neuts (auto) 3.1 (2.0-8.3) x10*3/uL Absolute Nucleated RBC 0.000 (0.0-0.012) X10*3/uL Nucleated RBC % (auto) 0.0 (0.0-0.2) /100WBC Sodium 141 (135-145) mmol/L Potassium 4.2 (3.3-5.1) mmol/L Chloride 104 (96-108) mmol/L Carbon Dioxide 27 (22-29) mmol/L Anion Gap 14 (12-20) BUN 18 H (9-16) mg/dL Creatinine 0.80 (0.5-1.4) mg/dL Estim Creat Clear Calc 101.0 Estimated GFR > 60 Random Glucose 243 H (60-115) mg/dL Calcium 9.4 (8.4-10.2) mg/dL Magnesium 1.7 (1.6-2.6) mg/dL Total Bilirubin 0.4 (0.0-1.0) mg/dL AST 19 (5-37) U/L ALT 38 (0-40) U/L Alkaline Phosphatase 80 (39-117) U/L Troponin I High Sens 7.6 (<3.5-35.0) ng/L Total Protein 7.1 (6.5-8.0) g/dL Albumin 4.5 (3.5-5.0) g/dL COVID-19 ([facility]) (Negative) COVID-19 Clin Com 06/10/22 06/10/22 Range/Units 19:54 21:19 WBC (4.8-10.8) X10*3/uL RBC (4.60-5.80) X10*6/uL Hgb (14.0-18.0) g/dl Hct (42.0-52.0) % MCV (80.0-98.0) fL MCH (27.0-33.0) pg MCHC (31.0-36.0) g/dl RDW (11.0-16.0) % Plt Count (160-400) X10*3/uL MPV (9.4-12.4) fL Immature Gran % (Auto) (0.0-0.4) % Neut % (Auto) (45-73) % Lymph % (Auto) (20-40) % Hinds % (Auto) (2-11) % Eos % (Auto) (0-4) % Baso % (Auto) (0-2) % Lymph # (Auto) (1.2-4.9) X10*3/uL Hinds # (Auto) (0.1-1.2) X10*3/uL Eos # (Auto) (0.0-0.4) X10*3/uL Baso # (Auto) (0.0-0.2) X10*3/uL Abs Immat Gran (auto) (0.00-0.03) X10*3/uL Absolute Neuts (auto) (2.0-8.3) x10*3/uL Absolute Nucleated RBC (0.0-0.012) X10*3/uL Nucleated RBC % (auto) (0.0-0.2) /100WBC Sodium (135-145) mmol/L Potassium (3.3-5.1) mmol/L Chloride (96-108) mmol/L Carbon Dioxide (22-29) mmol/L Anion Gap (12-20) BUN (9-16) mg/dL Creatinine (0.5-1.4) mg/dL Estim Creat Clear Calc Estimated GFR Random Glucose (60-115) mg/dL Calcium (8.4-10.2) mg/dL Magnesium (1.6-2.6) mg/dL Total Bilirubin (0.0-1.0) mg/dL AST (5-37) U/L ALT (0-40) U/L Alkaline Phosphatase (39-117) U/L Troponin I High Sens 7.0 (<3.5-35.0) ng/L Total Protein (6.5-8.0) g/dL Albumin (3.5-5.0) g/dL COVID-19 ([facility]) Positive A (Negative) COVID-19 Clin Com See Note <Brennen Oilveira - Last Filed: 06/10/22 23:15> Independent Interpretation I performed an independent interpretation of an: EKG <Brennen Oliveira - Last Filed: 06/10/22 23:15> Radiology Impression Discussion of test interpretation with radiology: I have reviewed the radiologist's reading. (CTA chest negative for PE. CT brain negative for acute abnormalities) <Brennen Oliveira - Last Filed: 06/10/22 23:15> Discharge Plan Discharge Clinical Impression: COVID-19 <RUSS Martinez - Last Filed: 06/10/22 19:01> Patient Disposition: Home, Self-Care <RUSS Martinez - Last Filed: 06/10/22 19:01> Instructions: COVID-19 (Coronavirus Disease 2019) (ED) <RUSS Martinez - Last Filed: 06/10/22 19:01> Additional Instructions: Your blood tests, EKG, x-ray and CT imaging were reassuring today. Did not have a blood clot in your lungs. Your blood pressure was elevated today. Follow this up with her primary doctor You tested positive for COVID-19 which likely explains all the symptoms you are experiencing <RUSS Martinez Last Filed: 06/10/22 19:01> Prescriptions: No Action amoxicillin-pot clavulanate 875-125 mg tablet PO glipizide 5 mg tablet extended release 24hr PO metformin 500 mg tablet PO atorvastatin 40 mg tablet PO sertraline 100 mg tablet PO olanzapine 5 mg tablet PO <RUSS Martinez - Last Filed: 06/10/22 19:01>
[2022-06-10 19:59] LABS: MANUAL DIFF FLAG NO
[2022-06-10 20:02] LABS: Basophils Percent Auto 0.6 % (0-2); Eosinophils Absolute Auto 0.1 X10*3/uL (0.0-0.4); Eosinophils Percent Auto 1.7 % (0-4); Hematocrit 41.7 % (42.0-52.0); Hemoglobin 14.3 g/dl (14.0-18.0); Imm Gran Abs Auto 0.02 X10*3/uL (0.00-0.03); Imm Gran Pct Auto 0.4 % (0.0-0.4); Lymphocytes Absolute Auto 1.1 X10*3/uL (1.2-4.9); Lymphocytes Percent Auto 23.4 % (20-40); Mean Corpuscular HGB Conc 34.3 g/dl (31.0-36.0); Mean Corpuscular Volume 87.4 fL (80.0-98.0); Mean Platelet Volume 10.1 fL (9.4-12.4); Monocytes Absolute Auto 0.5 X10*3/uL (0.1-1.2); Neutrophils Absolute Auto 3.1 x10*3/uL (2.0-8.3); Neutrophils Percent Auto 63.9 % (45-73); Platelet Count 179 X10*3/uL (160-400); Red Blood Count 4.77 X10*6/uL (4.60-5.80); White Blood Count 4.8 X10*3/uL (4.8-10.8)
[2022-06-10 20:09] LABS: COVID-19 Test Positive (Negative); IDNOW Serial# BCCEAD1C
[2022-06-10 20:15] LABS: Alanine Aminotransferase 38 U/L (0-40); Albumin Level 4.5 g/dL (3.5-5.0); Alkaline Phosphatase 80 U/L (39-117); Anion Gap 14 (12-20); Aspartate Amino Transferase 19 U/L (5-37); Bilirubin Total 0.4 mg/dL (0.0-1.0); Blood Urea Nitrogen 18 mg/dL (9-16); Calcium 9.4 mg/dL (8.4-10.2); Carbon Dioxide 27 mmol/L (22-29); Chloride 104 mmol/L (96-108); Estimated Glomerular Filt Rate > 60; Glucose Random 243 mg/dL (60-115); Magnesium 1.7 mg/dL (1.6-2.6); Potassium 4.2 mmol/L (3.3-5.1); Sodium 141 mmol/L (135-145); Total Protein 7.1 g/dL (6.5-8.0)
[2022-06-10 20:22] LABS: Troponin-I High Sensitivity 7.6 ng/L (<3.5-35.0)
[2022-06-10] MEDS: iohexoL 350 MG/ML 100 ML INFUS..BTL IV (22:05)
[2022-06-10 22:18] VITALS: BP 154/94; PULSE 81; RESP 16; TEMP 37; O2SAT 97
--- NOTE | 2022-06-10 22:37 | PC.NURSE ---
pt a&o, pt reports he been feeling dizzy for several weeks with some sob, but denies any chest pain, pt is covid positive, covid precautions in place. Will continue to monitor.
[2022-06-10 22:43] VITALS: BP 174/90; PULSE 71
[2022-06-10 22:45] VITALS: BP 162/90; PULSE 69
[2022-06-10 22:47] VITALS: BP 164/92; PULSE 82
--- NOTE | 2022-06-10 23:12 | PC.NURSE ---
Provider into discuss plan of care, plan is to discharge pt home. Iv removed awaiting discharge paperwork
--- NOTE | 2022-06-10 23:29 | PC.NURSE ---
Reviewed discharge instructions with pt, pt verbalized understanding, no sign of respiratory distress, pt ambulating with a steady, no sign of dizziness or lightheadeness.
== END 2022-06-10 23:31 | disposition home or self-care (01) ==
PROVIDERS: Physician Assistant; Emergency Provider Emergency Medicine; PCP Internal Medicine
DX: U07.1 COVID-19 (principal); R06.02 Shortness of breath; E11.9 Type 2 diabetes mellitus without complications; E78.5 Hyperlipidemia, unspecified; Z79.02 Long term (current) use of antithrombotics/antiplatelets; Z79.84 Long term (current) use of oral hypoglycemic drugs; Z79.899 Other long term (current) drug therapy
CPT/HCPCS: 36415; 70450; 71045; 71275; 80053; 82550; 83036; 83735; 84484; 85025; 85379; 86140; 87635; 93005; 99285; Q9967

== ENCOUNTER → 2022-06-25 07:53 | Outpatient (REF) | payer MEDICARE, OTHER, SELFPAY ==
--- NOTE | ~2022-06-25 | NM_ITS ---
EXERCISE MYOCARDIAL PERFUSION STUDY INDICATION: Coronary disease, assess for ischemia TECHNIQUE: The patient was brought in for an exercise perfusion study on 06/25/2022. Patient performed exercise as per Kamlesh protocol and was injected 35 mCi of sestamibi once target heart rate was achieved. Images were obtained using the SPECT gamma camera interlaced with the gating device. Images were obtained in supine position. Resting perfusion study was performed on 06/28/2022. Patient was administered 35 mCi of sestamibi intravenously at rest. Images were then obtained in supine position. Images were processed with the software and compared side to side in short axis, horizontal long axis and vertical long axis views. Total DLP 103mGy-cm. FINDINGS: Raw images were reviewed. The stress perfusion study showed no significant perfusion abnormality. Both uncorrected as well as CT attenuation corrected images were reviewed. The gated study shows normal LV systolic function with calculated LVEF of 55%. LV cavity is normal in size. The gated study shows normal wall thickening and contraction of segments. Resting study shows no significant perfusion abnormality. Gating at rest reveals normal wall motion. LVEF unreliable. Visually normal. The findings are consistent with no clear evidence of any ischemia or infarction.. NM/NM santa perf SPECT rest & str IMPRESSION: 1. Myocardial perfusion imaging study shows normal myocardial perfusion. 2. Gated LVEF is 55% during stress. EKG component of the test reported separately.
--- NOTE | 2022-06-25 07:57 | CA_ITS ---
Acquisition Time: 2022-06-25 08:10:08 Total Exercise Time: 00:08:30 Test Indications: Syncope Medications: GLIPIZIDE ATORVASTATIN METFORMIN SERTRALINE OLANZAPINE Protocol: NEDA Max HR: 127 BPM 84% of Pred: 150 BPM Max BP: 168/090 mmHG Max Work Load: 10.3 METS PT EXERCISED ON STD NEDA PROTOCOL FOR 830 INTO STAGE 3. MAX HR 127-84%MAX. END POINT WAS SOB. NO CP. NO EKG CHANGES.OCC PAC'S. CLINICALLY EQUIVOCAL, ELEC NEG. AWAIT SCAN RESULTS Referred By: Alexis Staples Overread By: DIANELYS STAPLES MD
== END ==
LOC: HO.CARD 07:53
PROVIDERS: PCP Internal Medicine; Visit Provider Internal Medicine
DX: R42 Dizziness and giddiness (principal); R11.0 Nausea
CPT/HCPCS: 78452; 93017; A9500; J0280; J2785

== ENCOUNTER 2022-09-09 11:31 | Outpatient (REF) | payer MEDICARE, OTHER, SELFPAY ==
[2022-09-09 14:03] LABS: Estimated Average Glucose 209 mg/dL; Hemoglobin A1c % 8.9 %
[2022-09-09 14:21] LABS: Anion Gap 14 (12-20); Blood Urea Nitrogen 16 mg/dL (9-16); Calcium 9.2 mg/dL (8.4-10.2); Carbon Dioxide 25 mmol/L (22-29); Chloride 105 mmol/L (96-108); Estimated Glomerular Filt Rate > 60; Glucose Random 192 mg/dL (60-115); Potassium 4.3 mmol/L (3.3-5.1); Sodium 140 mmol/L (135-145)
== END 2022-09-09 11:32 | disposition home or self-care (01) ==
LOC: HO.10HDL 11:31
PROVIDERS: Visit Provider Internal Medicine
DX: E11.9 Type 2 diabetes mellitus without complications (principal); E55.9 Vitamin D deficiency, unspecified
CPT/HCPCS: 36415; 80048; 82306; 83036

== ENCOUNTER 2022-12-10 11:41 | Outpatient (REF) | payer MEDICARE, OTHER, SELFPAY ==
[2022-12-10 13:25] LABS: MANUAL DIFF FLAG NO
[2022-12-10 13:45] LABS: Basophils Percent Auto 0.6 % (0-2); Eosinophils Absolute Auto 0.1 X10*3/uL (0.0-0.4); Eosinophils Percent Auto 2.3 % (0-4); Hematocrit 42.5 % (42.0-52.0); Hemoglobin 14.1 g/dl (14.0-18.0); Imm Gran Abs Auto 0.02 X10*3/uL (0.00-0.03); Imm Gran Pct Auto 0.4 % (0.0-0.4); Lymphocytes Absolute Auto 1.1 X10*3/uL (1.2-4.9); Lymphocytes Percent Auto 23.1 % (20-40); Mean Corpuscular HGB Conc 33.2 g/dl (31.0-36.0); Mean Corpuscular Hemoglobin 29.7 pg (27.0-33.0); Mean Corpuscular Volume 89.7 fL (80.0-98.0); Mean Platelet Volume 10.8 fL (9.4-12.4); Monocytes Absolute Auto 0.3 X10*3/uL (0.1-1.2); Monocytes Percent Auto 6.7 % (2-11); Neutrophils Absolute Auto 3.2 x10*3/uL (2.0-8.3); Neutrophils Percent Auto 66.9 % (45-73); Platelet Count 177 X10*3/uL (160-400); Red Blood Count 4.74 X10*6/uL (4.60-5.80); Red Cell Distribution Width 12.3 % (11.0-16.0); White Blood Count 4.8 X10*3/uL (4.8-10.8)
[2022-12-10 13:52] LABS: Estimated Average Glucose 160 mg/dL; Hemoglobin A1c % 7.2 % (<6.0)
[2022-12-10 13:57] LABS: Alanine Aminotransferase 33 U/L (0-40); Albumin Level 4.3 g/dL (3.5-5.0); Alkaline Phosphatase 68 U/L (39-117); Anion Gap 14 (12-20); Aspartate Amino Transferase 19 U/L (5-37); Bilirubin Total 0.4 mg/dL (0.0-1.0); Blood Urea Nitrogen 14 mg/dL (9-16); Calcium 9.2 mg/dL (8.4-10.2); Carbon Dioxide 25 mmol/L (22-29); Chloride 106 mmol/L (96-108); Estimated Glomerular Filt Rate > 60; Glucose Random 212 mg/dL (60-115); Potassium 3.8 mmol/L (3.3-5.1); Sodium 141 mmol/L (135-145); Total Protein 7.3 g/dL (6.5-8.0)
== END 2022-12-10 11:42 | disposition home or self-care (01) ==
LOC: HO.10HDL 11:41
PROVIDERS: Visit Provider Internal Medicine
DX: E11.9 Type 2 diabetes mellitus without complications (principal); E78.00 Pure hypercholesterolemia, unspecified
CPT/HCPCS: 36415; 80053; 83036; 85025

== ENCOUNTER 2023-04-02 09:08 | Outpatient (REF) | payer MEDICARE, OTHER, SELFPAY ==
[2023-04-02 11:24] LABS: MANUAL DIFF FLAG NO
[2023-04-02 11:29] LABS: Basophils Percent Auto 0.5 % (0-2); Eosinophils Absolute Auto 0.1 X10*3/uL (0.0-0.4); Eosinophils Percent Auto 1.4 % (0-4); Hemoglobin 15.2 g/dl (14.0-18.0); Imm Gran Abs Auto 0.02 X10*3/uL (0.00-0.03); Imm Gran Pct Auto 0.5 % (0.0-0.4); Lymphocytes Absolute Auto 1.2 X10*3/uL (1.2-4.9); Lymphocytes Percent Auto 26.6 % (20-40); Mean Corpuscular HGB Conc 33.8 g/dl (31.0-36.0); Mean Corpuscular Hemoglobin 29.5 pg (27.0-33.0); Mean Corpuscular Volume 87.2 fL (80.0-98.0); Mean Platelet Volume 10.7 fL (9.4-12.4); Monocytes Absolute Auto 0.3 X10*3/uL (0.1-1.2); Monocytes Percent Auto 6.5 % (2-11); Neutrophils Absolute Auto 2.9 x10*3/uL (2.0-8.3); Neutrophils Percent Auto 64.5 % (45-73); Platelet Count 158 X10*3/uL (160-400); Red Blood Count 5.16 X10*6/uL (4.60-5.80); Red Cell Distribution Width 12.8 % (11.0-16.0); White Blood Count 4.4 X10*3/uL (4.8-10.8)
[2023-04-02 11:51] LABS: Estimated Average Glucose 174 mg/dL; Hemoglobin A1c % 7.7 % (<6.0)
[2023-04-02 11:58] LABS: Alanine Aminotransferase 36 U/L (0-40); Albumin Level 4.2 g/dL (3.5-5.0); Alkaline Phosphatase 68 U/L (39-117); Anion Gap 11 (12-20); Aspartate Amino Transferase 19 U/L (5-37); Bilirubin Total 0.8 mg/dL (0.0-1.0); Blood Urea Nitrogen 17 mg/dL (9-16); Calcium 9.2 mg/dL (8.4-10.2); Carbon Dioxide 29 mmol/L (22-29); Chloride 104 mmol/L (96-108); Cholesterol 167 mg/dL (<200); Estimated Glomerular Filt Rate > 60; Glucose Fasting 188 mg/dL (60-99); HDL Cholesterol 41 mg/dL (>40); LDL Cholesterol Calculated 106 mg/dL (<100); Potassium 3.9 mmol/L (3.3-5.1); Sodium 140 mmol/L (135-145); Total Protein 7.3 g/dL (6.5-8.0); Triglycerides 100 mg/dL (<150)
[2023-04-02 12:13] LABS: Creatinine Urine 62.55 mg/dL; Microalbumin Urine < 5.0 mg/L
[2023-04-02 12:19] LABS: Prostate Specific Antigen 0.32 ng/mL (<0.05-4.0); Vitamin B12 876 pg/mL (200-900)
== END 2023-04-02 09:09 | disposition home or self-care (01) ==
LOC: HO.HMGCLDS 09:08
PROVIDERS: PCP Internal Medicine; Visit Provider Internal Medicine
DX: E11.9 Type 2 diabetes mellitus without complications (principal); E78.00 Pure hypercholesterolemia, unspecified; G62.9 Polyneuropathy, unspecified; R35.1 Nocturia; Z12.5 Encounter for screening for malignant neoplasm of prostate
CPT/HCPCS: 36415; 80053; 80061; 82043; 82570; 82607; 83036; 84153; 85025

== ENCOUNTER 2023-10-05 09:13 | Outpatient (REF) | payer MEDICARE, OTHER, SELFPAY ==
[2023-10-05 11:09] LABS: MANUAL DIFF FLAG NO
[2023-10-05 11:17] LABS: Basophils Percent Auto 0.4 % (0-2); Eosinophils Absolute Auto 0.1 X10*3/uL (0.0-0.4); Eosinophils Percent Auto 1.6 % (0-4); Hematocrit 43.2 % (42.0-52.0); Hemoglobin 14.6 g/dl (14.0-18.0); Imm Gran Abs Auto 0.05 X10*3/uL (0.00-0.03); Lymphocytes Percent Auto 20.5 % (20-40); Mean Corpuscular HGB Conc 33.8 g/dl (31.0-36.0); Mean Corpuscular Hemoglobin 30.1 pg (27.0-33.0); Mean Corpuscular Volume 89.1 fL (80.0-98.0); Mean Platelet Volume 10.4 fL (9.4-12.4); Monocytes Absolute Auto 0.4 X10*3/uL (0.1-1.2); Neutrophils Absolute Auto 3.3 x10*3/uL (2.0-8.3); Neutrophils Percent Auto 68.5 % (45-73); Platelet Count 145 X10*3/uL (160-400); Red Blood Count 4.85 X10*6/uL (4.60-5.80); Red Cell Distribution Width 12.6 % (11.0-16.0); White Blood Count 4.9 X10*3/uL (4.8-10.8)
[2023-10-05 11:29] LABS: Estimated Average Glucose 186 mg/dL; Hemoglobin A1c % 8.1 % (<6.0)
[2023-10-05 12:23] LABS: Creatinine Urine 79.52 mg/dL; Microalbum/Creatinine Ratio Ur 7.5 ug/mg cr (<30)
[2023-10-05 12:42] LABS: Alanine Aminotransferase 35 U/L (0-40); Albumin Level 4.3 g/dL (3.5-5.0); Alkaline Phosphatase 64 U/L (39-117); Anion Gap 13 (12-20); Aspartate Amino Transferase 23 U/L (5-37); Bilirubin Total 0.9 mg/dL (0.0-1.0); Blood Urea Nitrogen 15 mg/dL (9-16); Calcium 9.5 mg/dL (8.4-10.2); Carbon Dioxide 27 mmol/L (22-29); Chloride 103 mmol/L (96-108); Estimated Glomerular Filt Rate > 60; Glucose Random 201 mg/dL (60-115); Potassium 4.2 mmol/L (3.3-5.1); Sodium 139 mmol/L (135-145); Total Protein 7.2 g/dL (6.5-8.0)
[2023-10-05 12:46] LABS: Vitamin D 25-OH Total 46.9 ng/mL (>30)
== END 2023-10-05 09:14 | disposition home or self-care (01) ==
LOC: HO.HMGCLDS 09:13
PROVIDERS: PCP Internal Medicine; Visit Provider Internal Medicine
DX: E11.9 Type 2 diabetes mellitus without complications (principal); E55.9 Vitamin D deficiency, unspecified; N40.0 Benign prostatic hyperplasia without lower urinary tract symptoms
CPT/HCPCS: 36415; 80053; 82043; 82306; 82570; 83036; 85025

== ENCOUNTER 2024-01-17 10:53 | Outpatient (REF) | payer MEDICARE, OTHER, SELFPAY ==
[2024-01-17 14:08] LABS: MANUAL DIFF FLAG NO
[2024-01-17 14:12] LABS: Basophils Percent Auto 0.4 % (0-2); Eosinophils Absolute Auto 0.1 X10*3/uL (0.0-0.4); Eosinophils Percent Auto 1.6 % (0-4); Hematocrit 45.5 % (42.0-52.0); Hemoglobin 15.2 g/dl (14.0-18.0); Imm Gran Abs Auto 0.03 X10*3/uL (0.00-0.03); Imm Gran Pct Auto 0.6 % (0.0-0.4); Lymphocytes Absolute Auto 1.4 X10*3/uL (1.2-4.9); Lymphocytes Percent Auto 28.3 % (20-40); Mean Corpuscular HGB Conc 33.4 g/dl (31.0-36.0); Mean Corpuscular Hemoglobin 30.3 pg (27.0-33.0); Mean Corpuscular Volume 90.8 fL (80.0-98.0); Mean Platelet Volume 10.8 fL (9.4-12.4); Monocytes Absolute Auto 0.3 X10*3/uL (0.1-1.2); Monocytes Percent Auto 6.5 % (2-11); Neutrophils Absolute Auto 3.1 x10*3/uL (2.0-8.3); Neutrophils Percent Auto 62.6 % (45-73); Platelet Count 184 X10*3/uL (160-400); Red Blood Count 5.01 X10*6/uL (4.60-5.80); Red Cell Distribution Width 12.2 % (11.0-16.0)
[2024-01-17 14:40] LABS: Estimated Average Glucose 183 mg/dL; Hemoglobin A1C 243.8012 umol/L; Total Hemoglobin (HGBA1C) 3841.3907 umol/L
[2024-01-17 14:50] LABS: Creatinine Urine 57.28 mg/dL; Microalbumin Urine < 5.0 mg/L
[2024-01-17 14:53] LABS: Alanine Aminotransferase 48 U/L (0-40); Albumin Level 4.4 g/dL (3.5-5.0); Alkaline Phosphatase 65 U/L (39-117); Anion Gap 12 (12-20); Aspartate Amino Transferase 29 U/L (5-37); Bilirubin Total 0.7 mg/dL (0.0-1.0); Blood Urea Nitrogen 18 mg/dL (9-16); Calcium 9.6 mg/dL (8.4-10.2); Carbon Dioxide 29 mmol/L (22-29); Chloride 104 mmol/L (96-108); Estimated Glomerular Filt Rate > 60; Glucose Random 136 mg/dL (60-115); Potassium 4.1 mmol/L (3.3-5.1); Sodium 141 mmol/L (135-145); Total Protein 7.2 g/dL (6.5-8.0)
[2024-01-17 15:03] LABS: Vitamin B12 726 pg/mL (200-900)
== END 2024-01-17 10:54 | disposition home or self-care (01) ==
LOC: HO.HMGCLDS 10:53
PROVIDERS: PCP Internal Medicine; Visit Provider Internal Medicine
DX: E11.9 Type 2 diabetes mellitus without complications (principal); E78.00 Pure hypercholesterolemia, unspecified
CPT/HCPCS: 36415; 80053; 82043; 82570; 82607; 83036; 85025

== ENCOUNTER 2024-05-04 10:50 | Outpatient (AMB) | payer MEDICARE, OTHER, SELFPAY ==
--- NOTE | 2024-05-04 11:16 | A.OFFPC_ITS ---
Vital Signs 05/04/24 11:19 Height 5 ft 10 in Weight 215 lb BMI 30.8 BP 142/80 H Respiration 16 Pulse 84 Pulse Source Pulse Oximeter Temp 97.7 F Temp Source Temporal Artery Scan Pulse Oximetry (%) 96 Oxygen Delivery Method Room Air Intake Visit Reasons: Routine Email Marketing Manager Required: No Accompanied by: Self / Same As Patient Allergies No Known Allergies Allergy (Verified 05/04/24 11:16) Tobacco use date assessed: 05/04/24 Fall risk assessment: 1 Fall in past year Last assessed Fall Risk: 05/04/24 Dental Screening Dental Screen Date: 05/04/24 Did you have a dental visit in the last 12 months?: Yes Did you have a dental problem in the last 6 months where you did not have access to dental care?: No HPI HPI Comments History of Present Illness Details The patient is a 73 year old male with a past medial history of IDDM, hyperlipidemia, left knee OA presenting for follow up Last A1C 12 at 8.0%. Has CGM. Follows with Dr Lara CGDoris GMI 7.0%. Going for labs today. On tresiba 10, glipizide 20, januvia, metformin 500 BID. Colonoscopy Due 01/2025 ROS CONSTITUTIONAL: Denies weight loss, fever and chills. HEENT: Denies changes in vision and hearing. RESPIRATORY: Denies SOB and cough. CV: Denies palpitations and CP GI: Denies abdominal pain, nausea, vomiting and diarrhea. : Denies dysuria and urinary frequency. MSK: Denies new myalgia and joint pain. SKIN: Denies rash and pruritus. NEUROLOGICAL: Denies headache PSYCHIATRIC: Denies recent changes in mood. PHYSICAL EXAM: GENERAL: Alert and oriented x 3. NAD EYES: EOMI. Anicteric. HENT: Moist mucous membranes. No scleral icterus. No cervical lymphadenopathy. LUNGS: Clear to auscultation bilaterally. CARDIOVASCULAR: Regular rate and rhythm. No murmur. No JVD. ABDOMEN: Soft, non-tender +bs EXTREMITIES: No edema. Non-tender. SKIN: No rashes or lesions. Warm. NEUROLOGIC: No focal neurological deficits. CN II-XII grossly intact PSYCHIATRIC: Cooperative. Appropriate mood and affect [facility] Medical History Hx of diabetes mellitus History of high cholesterol Family History Mother No problems noted. Father Cardiac arrest Social History Housing: House Alcohol intake: current Alcohol intake frequency: does not drink Patient Tobacco Use Status: Never used Tobacco service: No Current occupational status: retired Current occupation: right hand dominant Cognitive needs: No Hearing needs: Yes (b/l hearing aids) Vision needs: Yes (rx glasses) Questionnaire PHQ-9 Over the last 2 weeks, how often have you been bothered by any of the following problems? 1. Little interest or pleasure in doing things: not at all 2. Feeling down, depressed, or hopeless: not at all 3. Trouble falling or staying asleep, or sleeping too much: not at all 4. Feeling tired or having little energy: not at all 5. Poor appetite or overeating: not at all 6. Feeling bad about yourself - or that you are a failure or have let yourself or your family down: not at all 7. Trouble concentrating on things, such as reading the newspaper or watching television: not at all 8. Moving or speaking so slowly that other people could have noticed. Or the opposite - being so fidgety or restless that you have been moving around a lot more than usual: not at all 9. Thoughts that you would be better off or of hurting yourself in some way: not at all Total score: 0 Depression Screening Interpretation: Negative Depression Screening Done: Yes 95051 - PHQ-9 Billing: Yes Source: Developed by Drs. Darrick Lyons, April Gruber, Magan Aldrich and colleagues, with an educational radha from [employer]. Thrive Questionnaire Date Thrive assessed: 05/04/24 I am a: Patient What is your living situation today?: I have a steady place to live Within the past 12 months, did the food you bought not last and you didn't have the money to get more?: Never true Within the past 12 months, did you worry whether your food would run out before you got money to buy more?: Never true Do you have trouble paying for medicines?: No Do you have trouble getting transportation to medical appointments?: No Do you have trouble paying your heating and electricity bill?: No Do you have trouble taking care of your child, family member or friend?: No Do you have trouble with day-to-day activities such as bathing, preparing meals, shopping, managing finances, etc.?: No Are you currently unemployed and looking for a job?: No Are you interested in more education?: No Please select the resources that you would like help with: None THRIVE Score: 0 AUDIT C Alcohol Use Questionnaire (AUDIT-C) 1. How often do you have a drink containing alcohol?: Never 3. How often do you have six or more drinks on one occasion?: Never Total Score: 0 HEATHER-7 AMB Questionnaire HEATHER-7 Date HEATHER - 7 assessed: 05/04/24 Feeling nervous, anxious, or on edge: 0 = Not at all Not being able to stop or control worryin = Not at all Worrying too much about different things: 0 = Not at all Trouble relaxin = Not at all Being so restless that it is hard to sit still: 0 = Not at all Becoming easily annoyed or irritable: 0 = Not at all Feeling afraid as if something awful might happen: 0 = Not at all Total HEATHER-7 score (0-4 normal; 5-9 mild; 10-14 moderate; 15-21 severe): 0 Source: Developed by Drs. Darrick Lyons, April Gruber, Magan Aldrich and colleagues, with an educational radha from [employer]. Physical exam (Primary Care) Vital Signs: Last Vital Signs Temp 97.7 F 05/04/24 11:19 Pulse 84 05/04/24 11:19 Resp 16 05/04/24 11:19 BP 142/80 H 05/04/24 11:19 Pulse Ox 96 05/04/24 11:19 Oxygen Delivery Method Room Air 05/04/24 11:19 BMI result Body Mass Index 30.8 Tobacco/Smoking Status: Tobacco use Status Tobacco use date assessed 05/04/24 05/04/24 11:27 Patient Tobacco Use Status Never used Tobacco 05/04/24 11:27 PHQ-9: PHQ-9 Score PHQ-9: Total score 0 05/06/24 19:59 Depression Screening Interpretation: Negative Thrive Assessment: Date of Thrive Assessment Date Thrive assessed 05/04/24 05/04/24 11:27 Coding Level of Care Code New Pt Level 4 (96687) Diagnoses Type 2 diabetes mellitus with hyperglycemia, with long-term current use of insulin E11.65; Z79.4 Diabetes mellitus complication status: with hyperglycemia Diabetes mellitus senior hardware engineer insulin use: with fdc use Additional Codes PHQ-9 - 34278 - PHQ-9 Billing: Yes ([id number]) Assessment & Plan Assessment & Plan (1) Type 2 diabetes mellitus: Code(s): E11.9 - Type 2 diabetes mellitus without complications Category: Medical Qualifiers: Diabetes mellitus complication status: with hyperglycemia Diabetes mellitus senior hardware engineer insulin use: with senior hardware engineer use Qualified Code(s): E11.65 - Type 2 diabetes mellitus with hyperglycemia; Z79.4 - [facility] (current) use of insulin Plan 73 y/o to establish care. past medical, surgical, social family history reviewed Diabetes-following with endocrine. Labs ordered Orders: Orders Lipid Panel 05/05/24 E11.9 - Type 2 diabetes mellitus without complications, Z1 2.5 - Encounter for screening for malignant neoplasm of prostate Prostate Specific Antigen 05/05/24 E11.9 - Type 2 diabetes mellitus without complications, Z12.5 - Encounter for screening for malignant neoplasm of prostate Hemoglobin A1c 05/05/24 E11.9 - Type 2 diabetes mellitus without complications, Z12.5 - Encounter for screening for malignant neoplasm of prostate Comprehensive Met. Panel 05/05/24 E11.9 - Type 2 diabetes mellitus without complications, Z12.5 - Encounter for screening for malignant neoplasm of p rostate Microalbumin, Random (w Creat) 05/05/24 E11.9 - Type 2 diabetes mellitus without complications, Z12.5 - Encounter for screening for malignant neoplasm of prostate
[2024-05-04 11:19] VITALS: BP 142/80; PULSE 84; RESP 16; TEMP 36.5; O2SAT 96; BMI 30.8
== END 2024-05-04 11:59 | disposition home or self-care (01) ==
LOC: HO.HMCHD 10:50
PROVIDERS: PCP Internal Medicine; Visit Provider Internal Medicine
DX: E11.65 Type 2 diabetes mellitus with hyperglycemia (principal); Z79.4 Long term (current) use of insulin

== ENCOUNTER → 2024-05-04 10:50 | Outpatient (BNVA) | payer MEDICARE, OTHER, SELFPAY | PROVIDERS: PCP Internal Medicine; Visit Provider Internal Medicine | DX: E11.65 Type 2 diabetes mellitus with hyperglycemia (principal); Z79.4 Long term (current) use of insulin | CPT/HCPCS: 96127; 99202 ==

== ENCOUNTER 2024-05-05 08:15 | Outpatient (REF) | payer MEDICARE, OTHER, SELFPAY ==
[2024-05-05 12:41] LABS: Alanine Aminotransferase 31 U/L (0-40); Albumin Level 4.1 g/dL (3.5-5.0); Anion Gap 10 (12-20); Aspartate Amino Transferase 22 U/L (5-37); Bilirubin Total 0.6 mg/dL (0.0-1.0); Blood Urea Nitrogen 16 mg/dL (9-16); Calcium 9.1 mg/dL (8.4-10.2); Carbon Dioxide 27 mmol/L (22-29); Chloride 108 mmol/L (96-108); Cholesterol 136 mg/dL (<200); Estimated Glomerular Filt Rate > 60; Glucose Random 118 mg/dL (60-115); HDL Cholesterol 36 mg/dL (>40); LDL Cholesterol Calculated 86 mg/dL (<100); Sodium 141 mmol/L (135-145); Total Protein 7.3 g/dL (6.5-8.0); Triglycerides 71 mg/dL (<150)
[2024-05-05 12:51] LABS: Estimated Average Glucose 146 mg/dL; Hemoglobin A1C 190.6954 umol/L; Hemoglobin A1c % 6.7 % (<6.0); Total Hemoglobin (HGBA1C) 3844.9991 umol/L
[2024-05-05 12:53] LABS: Alkaline Phosphatase 61 U/L (39-117)
[2024-05-05 13:05] LABS: Prostate Specific Antigen 0.27 ng/mL (<0.05-4.0)
[2024-05-05 14:08] LABS: Creatinine Urine 72.59 mg/dL; Microalbumin Urine < 5.0 mg/L
== END 2024-05-05 08:16 | disposition home or self-care (01) ==
LOC: HO.HMGCLDS 08:15
PROVIDERS: PCP Internal Medicine; Visit Provider Internal Medicine
DX: Z12.5 Encounter for screening for malignant neoplasm of prostate (principal); E11.9 Type 2 diabetes mellitus without complications
CPT/HCPCS: 36415; 80053; 80061; 82043; 82570; 83036; 84153

== ENCOUNTER 2024-10-12 15:39 | Outpatient (AMB) | payer MEDICARE, OTHER, SELFPAY ==
--- OUTSIDE RECORDS SUMMARY | 2024-10-12 15:42 | XMS_ITS | Encounter Summary ---
Author Organization [facility] Address [address] [place] [id number] Phone Care Team Providers Care Overhead Crane Inspector Name Role Phone Martine Louis MD Primary Care Provider + [phone] Encounter Details Date Type Department Care Team (Late st Contact Info) Description 10/08/2024 Refill [facility] [address] [place] [address] Brianne Cruz MA [address] [place] [id number] Social History Tobacco Use Types Packs/Day Years Used Date Smoking Tobacco: Never Smokeless Tobacco: Never Alcohol Use Standard Drinks/Week Comments Never 0 (1 standard drink = 0.6 oz pur e alcohol) Education Answer Date Recorded Are you interested in more education? Not on gladis e 06/12/2022 Are you concerned about learning? Not on file 06/12/2022 No 06/12/2022 No 06/12/2022 Digital Access Answer Date Recorded No 07/09/2022 No 07/09/2022 Reliable internet access at home? Not on file 07/09/2022 Device with a working camera? Not on file Sex and Gender Information Value Date Recorded Sex Assigned at Not on file Legal Sex Male 1:51 PM EST Gender Identity Not on file Sexual Orientation Not on file documented as of this encounter Progress Notes * Brianne Cruz MA - 10/08/2024 3:21 PM EDT Rx Care Gap Status - Instructions for Clinical Staff (prescriber discretion applies): > Mismatch review guide > At least one request does not meet full criteria. Specifics below. > Labs due: Please remind patient. > No new orders needed. A1c BMP Lipid panel Urine Microalbumin Visit Info Last visit: 06/26/2024 Tiffanie Mendieta PA-C - Endocrinology [facility] > Requested f/u: Return in about 33 weeks (around 02/12/2025). Upcoming visit: 11/13/2024 Miracle Odell MD - Endocrinology [facility] ACTIONS TAKEN BY Brianne Cruz MA - Labs needed - Teed up orders and/or reminded pt. Diabetes Rx Protocol (on Diabetes Registry) - blood sugar diagnostic Criteria not met; renew for up to 3 months. Visit in the past 14 months: Yes Clinical criteria: - BMP within past year: None (has active order) - A1c within past 6 months: None (has active order) - Lipid panel within past year: None (has active order) (No prior value) - Urine microalbumin within past year or on HARDEEP/ARB: None (has active order) Health Maintenance Labs Due / Due Soon Topic Date Due HEMOGLOBIN A1C Never done URINE MICROALBUMIN/CREATININE RATIO Never done documented in this encounter Plan of Treatment Upcoming Encounters Date Type Department Care Team (Late st Contact Info) Description 11/13/2024 9:00 AM EDT Office Visit [facility] [address] [place] [address] [place] [address] Miracle Odell MD [address] [place] [id number] documented as of this encounter Visit Diagnoses Diagnosis Type 2 diabetes mellitus with peripheral neuropathy documented in this encounter Care Teams Overhead Crane Inspector Relationship Specialty Start Date End Date Martine Louis MD [address] [place] [address] [place] [id number] PCP - General Internal Medicine 06/26/24 documented as of this encounter Additional Source Comments The information contained in this document represents components of the legal health record. It is not the complete legal health record.[facility]
--- OUTSIDE RECORDS SUMMARY | 2024-10-12 15:42 | XMS_ITS | Clinical Summary ---
Author Organization [facility] Address [address] [place] [phone] Phone Care Team Providers Care Research Laboratory Technician Name Role Phone Martine Louis MD Primary Care Provider + [phone] Allergies No known active allergies Medications atorvastatin (LIPITOR) 40 MG tablet Take 1 tablet by mouth every morning. 03/15/19 23 Active OLANZapine (ZYPREXA) 5 MG tablet Take 5 mg by mouth daily. 05/23/19 23 Active sertraline (ZOLOFT) 100 MG tablet Take 150 mg by mouth daily. Patient takes 1.5 tablets daily 05/23/19 23 Active vitamin B complex-folic acid 0.4 mg Tab Take 1 tablet by mouth daily. Active cholecalcifero l (VITAMIN D3) 25 MCG (1,000 unit) tablet Take 1,000 Units by mouth daily. Active FREESTYLE 28 gauge lancetsIndicat ions:Type 2 diabetes mellitus with peripheral neuropathy USE 1 EACH BY PERCUTANEOUS ROUTE DAILY. DX E11.42 100 each 3 10/18/19 24 Active BD ULTRA-FINE YANIRA PEN NEEDLE 32 gauge x 5/32 NdleIndication s:Type 2 diabetes mellitus with peripheral neuropathy 1 each by Miscellaneous route daily. Dx E11.42 100 each 3 12/13/19 24 Active glipiZIDE (GLUCOTROL XL) 5 MG 24 hr tabletIndicati ons:Type 2 diabetes mellitus with peripheral neuropathy TAKE 4 TABS BY MOUTH DAILY AT DINNER 360 tablet 1 05/12/19 25 Active JARDIANCE 25 mg tabletIndicati ons:Type 2 diabetes mellitus with peripheral neuropathy TAKE 1 TABLET (25 MG TOTAL) BY MOUTH DAILY. 90 tablet 1 05/12/19 25 Active metFORMIN (GLUCOPHAGE) 500 MG tabletIndicati ons:Type 2 diabetes mellitus with peripheral neuropathy TAKE 2 TABLETS TWICE DAILY 360 tablet 3 09/13/19 25 Active TRESIBA FLEXTOUCH U-100 injection penIndications :Type 2 diabetes mellitus with peripheral neuropathy INJECT 10 UNITS UNDER THE SKIN NIGHTLY AT BEDTIME. 15 mL 1 10/05/19 25 Active FREESTYLE LITE Strp stripsIndicati ons:Type 2 diabetes mellitus with peripheral neuropathy To test blood glucose daily dx E11.42 100 strip 3 10/09/19 25 Active FREESTYLE LITE Strp stripsIndicati ons:Type 2 diabetes mellitus with peripheral neuropathy To test blood glucose daily dx E11.42 100 strip 3 11/25/19 23 025 Discontin ued(Reord er) TRESIBA FLEXTOUCH U-100 injection penIndications :Type 2 diabetes mellitus with peripheral neuropathy Inject 10 Units under the skin nightly at bedtime. 15 mL 1 12/13/19 24 025 Discontin ued(Reord er) Active Problems Problem Noted Date Diagnosed Date Type 2 diabetes mellitus with peripheral neuropa thy 06/07/2022 Overview (06/07/2022): Dx around 2018. On oral agents. A1c low at 7.3, highest 9.4. PNP with loss of vibratory sensation from the mid shelley down. Cold feet and left toes numb. Has background diabetic retinopathy. Assessment & Plan (06/26/2024 10:33 AM EDT): Control is very good based upon the patient's freestyle zhanna 3+ sensor download and his last A1C of 6.7%. No frequent or severe hypoglycemia. He has been of the januvia for 3 weeks now and has not seen a difference in his glucose levels. Will continue off of the januvia. Will maintain the rest of his regimen. Continue to work on eating healthy and being active. To call or message with any issues managing his glucose levels. Up to date with ophtho. Labs reviewed from PCP Assessment & Plan (03/20/2024 9:42 AM EST): Improved control by zhanna 3 CGM download with average glucose 168, GMI 7.3, in target 62%. Rare mild hypoglycemia when skipping a meal. Currently taking 10 units of Tresiba at night, Januvia 100 mg, metformin 2000 mg at dinner, Januvia 25 mg in the morning. Finds the zhanna 3 CGM very helpful to learn more about carbohydrate content of meals and effect of exercise on blood sugars. Denies retinopathy on recent exam. Urine microalbumin/creatinine ratio normal in 09/2023. Recent fasting lipids not available. Has intermittent numbness on feet. Taking super B complex with 100 mcg B12 nightly. Recent B12 level not available. -Keep current treatment. -Reviewed symptoms, prevention and treatment of hypoglycemia. -If repeated blood sugars below the 70s, start cutting back on the Tresiba. If continued hyperglycemia we may wean off the glipizide -Continue to work on carbohydrate controlled meal plan and regular exercise. -Call with blood sugar problems -Abnormal lab slip to labs planned by PCP in June. Follow-up with [facility] as scheduled on 06/26/2024 Assessment & Plan (01/24/2024 9:54 AM EST): Control has greatly improved based upon the patient's freestyle zhanna 3 sensor download and his recent A1C of 8%. No frequent or severe hypoglycemia. He had a couple minor lows, he corrected with juice or ice cream and was fine. Will maintain his regimen. Continue to work on eating healthy and being active. To call or message with any issues managing his glucose levels. [facility] reviewed from [facility] Assessment & Plan (12/13/2023 12:26 PM EDT): Control is poor based upon the patient's freestyle zhanna pro sensor download. His average reading is 280. Time in target range is 6%, time high is 30%, time very high is 64%. His glucose levels are running consistently throughout the day with his glucose levels running higher after meals. Discussed either adding a weekly GLP- 1 or insulin. He just picked up a 90 day supply of januvia so would prefer to wait to switch to a weekly GLP-1 until he has almost used all of his januvia. Will start once a day basal insulin. Reviewed insulin storage and shelf life. Reviewed treatment and prevention of hypoglycemia. Discussed insulin injection site rotation. Showed him how to set up and inject insulin using the insulin pens. Will start him with 10 units once a day. Will work on getting him a freestyle zhanna 3+ from [facility] to be able to monitor his glucose levels closer. Will then be able to have him titrate his insulin but also make other medication adjustments. Continue to work on eating healthy and being active. To call or message with any issues managing his glucose levels. Assessment & Plan (11/29/2023 9:02 AM EDT): Control is suboptimal based upon the patient's SMBG readings and his A1C of 8.1%. No frequent or severe hypoglycemia. Will increase his jardiance to help improve his glucose control. Placed the freestyle zhanna pro sensor to the back of the patient's right arm. No bleeding or redness at the injection site. Reviewed care of the sensor. Reviewed that if the sensor falls off within 3 days to call the office and will place another one. If the sensor falls off after that period to bring in the sensor in a zip lock bag and we will download the data that is available on the sensor at that time. Will continue with current SMBG testing and current medication regimen. To call or message with any issues managing glucose levels. [facility] labs from PCP Assessment & Plan (06/03/2023 9:34 PM EDT): Control continues to improve based upon the patient's SMBG readings. No frequent or severe hypoglycemia. Will maintain his current regimen. Continue to work on eating healthy and being active. To call or message with any issues managing his glucose levels. [facility] Assessment & Plan (03/12/2023 9:36 PM EST): Improved control. A1c down to 7.2% x 11/2022 from 8.9. Tolerating Jardiance 10 mg daily well which was added few months ago. He remains on glipizide XL 15 mg at dinner, Januvia 100 mg, metformin 500 mg 2 tablets twice a day. No frequent or severe hypoglycemia. Plan to keep current treatment. Reviewed symptoms, prevention and treatment of hypoglycemia. If blood sugars are getting below the 70s, would need to start decreasing the glipizide dose. Planning to have blood work by PCP in 10 days, asked to add my lab slip. Follow-up with [facility] on 05/27/2023 and with me 3 months later. Assessment & Plan (11/24/2022 9:58 AM EDT): Control is improving based upon the patient's SMBG readings. No frequent or severe hypoglycemia. Since adding the 10 mg of jardiance to his medication regimen his glucose levels have improved. Will maintain his current regimen. Continue to work on eating healthy and being active. To call or message with any issues managing his glucose levels. Up to date with opho. Labs ordered to do prior to next visit Assessment & Plan (09/08/2022 12:47 PM EDT): Control is suboptimal based upon the patient's SMBG readings. No frequent or severe hypoglycemia. He has not been good with his diet recently. He has been skipping meals- mainly breakfast, which may be causing some of the highs by lunch. He hasn't been as careful with his diet either. He is going to work on this. He is scheduled to see his PCP tomorrow and will do blood work then. Depending upon the results of the blood work, may need to consider the addition of jardiance 10 mg to help improve control. Continue to work on eating healthy and being active. To call or message with any issues managing his glucose levels. [facility] Assessment & Plan (06/07/2022 10:09 AM EDT): 71-year-old man with type 2 diabetes treated for about 5 years. Old records were not available. He has peripheral neuropathy with loss of vibratory sensation from mid shelley down and intermittent symptoms including cold feet numbness in the left toes. He also reports what sounds like background diabetic retinopathy, last visit with [facility] was in 12/2021, report is not available. He has been taking Januvia 100 mg in a.m., metformin 1000 mg twice a day and 50 mg glipizide XL at dinnertime. His blood sugar by SMBG ranging between 70-213. Lowish blood sugars were related to increased physical activity. High readings over 200 mostly 2 hours after the evening meal. He intentionally lost about 10 pounds in the last 6 months. Congratulated on his efforts. Suggested to move his glipizide to before lunch because this is his biggest meal, it may help to control the after dinner blood sugars better as well. Continue current Januvia and metformin. Labs by PCP with copy to our office. If next A1c is still over 7 to 7.5% we may switch the Januvia to a once weekly GLP-1 receptor agonist like Trulicity or Ozempic. We reviewed symptoms, treatment and prevention of hypoglycemia. Patient to call if blood sugar below 70 or over 250 repeatedly. Encounters Date Type Department Care Team Description 10/08/2024 Refill [facility] [address] [place] [address] Brianne Cruz MA 10/04/2024 Refill [facility] [address] [place] [address] Tiffanie Mendieta PA-C Medication Refill 09/12/2024 Refill [facility] [address] [place] [address] Tiffanie Mendieta PA-C Medication Refill from Last 3 Months Social History Tobacco Use Types Packs/Day Years Used Date Smoking Tobacco: Never Smokeless Tobacco: Never Tobacco Cessation:Counseling Given: Not Answered Alcohol Use Standard Drinks/Week Comments Never 0 [...] on file Sexual Orientation Not on file Last Filed Vital Signs Vital Sign Reading Time Taken Comments Blood Pressure 138/84 06/26/2024 9:48 AM EDT Pulse 77 06/26/2024 9:48 AM EDT Temperature 36.4 C (97.5 F) 03/02/2023 9:15 AM EST Respiratory Rate - - Oxygen Saturation 95% 06/26/2024 9:48 AM EDT Inhaled Oxygen Concentration - - Weight 96.3 kg (212 lb 3.2 oz) 06/26/2024 9:48 A M EDT Height 180.2 cm (5' 10.95 ) 06/26/2024 9:48 AM E DT Body Mass Index 29.64 06/26/2024 9:48 AM EDT Plan of Treatment Upcoming Encounters Date Type Department Care Team (Late st Contact Info) Description 11/13/2024 9:00 AM EDT Office Visit [facility] [address] [place] [id number] Miracle Odell MD [address] [place] [id number] [email or web address] Health Maintenance Due Date Last Done Comments Adult Td,Tdap Booster 1950 HEMOGLOBIN A1C 1950 DEPRESSION SCREENING 1963 HEPATITIS C SCREENING 12/26/1969 PNEUMOCOCCAL VACCINES (50+ years) (1 of 2 - PCV) 12/26/1970 COLOGUARD 12/26/1996 COLONOSCOPY 12/26/1996 COLORECTAL CANCER SCREENING 12/26/1996 FIT TEST 12/26/1996 FOBT 12/26/1996 SIGMOIDOSCOPY 12/26/1996 VIRTUAL COLONOSCOPY 12/26/1996 ZOSTER VACCINES (1 of 2) 12/26/2001 RSV VACCINE (1 - Risk 60-74 years 1-dose series) 2011 DIABETIC EYE EXAM 06/07/2022 URINE MICROALBUMIN/CREATININE RATIO 06/07/2022 COVID-19 VACCINE ( - season) 2023 INFLUENZA VACCINE (#1) 2024 BLOOD PRESSURE 2024 06/26/2024 CREATININE LEVEL 05/05/2025 05/05/2024, , 10/05/2023, Additional history exists SMOKING STATUS SCREENING (Once After 26 Yrs) Completed 06/26/2024 HEPATITIS A VACCINES Aged Out No long er eligible based on patient's age to complete this topic HIB VACCINES Aged Out No longer eligi ble based on patient's age to complete this topic MENINGOCOCCAL VACCINES (ACWY) Aged Out No longer eligible based on patient's age to complete this topic MENINGOCOCCAL VACCINES (B) Aged Out N o longer eligible based on patient's age to complete this topic Medical Devices Not on file Procedures Procedure Name Priority Date/Time Associated Diagnosis Comments COMPREHENSIVE METABOLIC PANEL Routine 05/05/2024 10:18 AM EDT from Last 3 Months or Most Recently Relevant to Health Maintenance Results * Comprehensive metabolic panel (05/05/2024 10:18 AM EDT) us Historical Provider LAB BLOOD ORDERABLES Louisa l Result from Last 3 Months or Most Recently Relevant to Health Maintenance Insurance O MEDICARE PART A & B HMO MEDICARE PART A & [place] [address] [place], [place] [id number] [facility]ARE [facility] & [facility] & B [facility] HMO MEDICARE PART A & B Care Teams Research Laboratory Technician Relationship Specialty Start Date End Date Martine Louis MD [address] [place] [address] [place] [address] PCP - General Internal Medicine 06/26/24 Additional Source Comments The information contained in this document represents components of the legal health record. It is not the complete legal health record.[facility]
--- NOTE | 2024-10-12 15:46 | A.OFFVIS_ITS ---
Intake Vital Signs 10/12/24 15:56 Height 5 ft 10 in Weight 212 lb 8 oz BMI 30.5 BP 136/78 Blood Pressure Location Lt brachial Position Sitting Respiration 14 Pulse 85 Pulse Source Pulse Oximeter Pulse Oximetry (%) 94 Oxygen Delivery Method Room Air Intake Visit Reasons: Wellness Exam Intake Note: Medical Wellness visit. Supervisor Assembly And Packing Required: No Allergies No Known Allergies Allergy (Verified 10/12/24 15:46) HPI HPI Comments History of Present Illness Details The patient is a 73 year old male with a past medial history of IDDM, hyperlipidemia, left knee OA presenting for MWV Last A1C 12 at 6.7%. Has CGM. Follows with Dr Cook. CGM GMI 7.0%. On tresiba 10, glipizide 20, jardiance, metformin 1000 BID. MSK: Knees have been bothersome. He is following at [facility]. Has had steroid injections, hyalgan or similar Colonoscopy Due 01/2025 ROS CONSTITUTIONAL: Denies weight loss, fever and chills. HEENT: Denies changes in vision and hearing. RESPIRATORY: Denies SOB and cough. CV: Denies palpitations and CP GI: Denies abdominal pain, nausea, vomiting and diarrhea. : Denies dysuria and urinary frequency. MSK: Denies new myalgia and joint pain. SKIN: Denies rash and pruritus. NEUROLOGICAL: Denies headache PSYCHIATRIC: Denies recent changes in mood. PHYSICAL EXAM: GENERAL: Alert and oriented x 3. NAD EYES: EOMI. Anicteric. HENT: Moist mucous membranes. No scleral icterus. No cervical lymphadenopathy. LUNGS: Clear to auscultation bilaterally. CARDIOVASCULAR: Regular rate and rhythm. No murmur. No JVD. ABDOMEN: Soft, non-tender +bs EXTREMITIES: No edema. Non-tender. SKIN: No rashes or lesions. Warm. NEUROLOGIC: No focal neurological deficits. CN II-XII grossly intact PSYCHIATRIC: Cooperative. Appropriate mood and affect [facility] Medical History Hx of diabetes mellitus History of high cholesterol Family History Mother No problems noted. Father Cardiac arrest Social History Housing: House Alcohol intake: current Alcohol intake frequency: does not drink Patient Tobacco Use Status: Never used Tobacco service: No Current occupational status: retired Current occupation: right hand dominant Cognitive needs: No Hearing needs: Yes (b/l hearing aids) Vision needs: Yes (rx glasses) Questionnaire Medicare Wellness Checkup What [age] 65-70 What gender do you identify with?: male During the past 4 weeks, how much have you been bothered by emotional problems such as feeling anxious, depressed, irritable, sad or downhearted, and blue?: not at all During the past 4 weeks, has your physical & emotional health limited your social activities with family, friends, neighbors, or groups?: moderately During the past 4 weeks, how much bodily pain have you generally had?: mild pain During the past 4 weeks, was someone available to help you if you needed & wan sheldon help?: yes, as much as I wanted During the past 4 weeks, what was the hardest physical activity you could do for at least 2 minutes?: moderate Can you get to places out of walking distance without help? (For eg., can you travel alone on buses, taxis or drive your car?): Yes Can you go shopping for groceries or clothes without someone's help?: Yes Can you prepare your own meals?: Yes Can you do your housework without help?: Yes Because of any health problems, do you need the help of another person with your personal care needs such as eating, bathing, dressing or getting around the house?: No Can you handle your own money without help?: Yes During the past 4 weeks, how would you rate your health in general?: excellent During the past 4 weeks how have things been going for you?: very well; could hardly better Are you having difficulties driving your car?: no Do you always fasten your seat belt when you are in a car?: yes, usually During past 4 weeks, have you been bothered by the following: never: Falling or dizzy when standing up, Sexual problems?, Trouble eating well?, Teeth or denture problems?, Problems using the telephone? and Tiredness or fatigue? Have you fallen 2 or more times in the past year?: No Are you afraid of falling?: No Are you a smoker?: no During the past 4 weeks, how many drinks of wine, beer, or other alcoholic beverages did you have?: no alcohol at all Do you exercise for about 20 minutes 3 or more times a week?: yes, most of the time Have you been given information to help with the following?: no: Hazards in your house that might hurt you? and no: Keeping track of your medications? How often do you have trouble taking medicines the way you have been told to take them?: I always take medicine as prescribed How confident are you that you can control & manage most of your health problems?: somewhat confident What is your race?: White Mini Mental State Exam (MMSE) Orientation What is the (year) (season) (date) (day) (month)?: year (2024), season (summer), date (10/12), day and month Where are we (state) (county) (town or city) (hospital) (floor)?: state ([place]), county ([place]), town or city ([place]), hospital/clinic ([facility]) and floor (first) Registration Name of 3 unrelated objects clearly and slowly, then ask patient to repeat all 3 of them. (1st repeat determines score. Make sure they can repeat all three): object 1 (ball), object 2 (flag) and object 3 (tree) Attention & Calculation (CHOOSE ONE) Ask pt to begin with 100 & count backward by 7. Stop after 5 repeats. If pt cannot ask them to spell the word WORLD backward.: 93, 86 and 79 Recall Ask patient to repeat the 3 items from question #3.: object 1 (ball) and object 2 (flag) Language Show patient a wristwatch & ask what it is. Repeat for pencil.: watch and pencil Ask the patient to repeat the phrase 'No ifs, ands, or buts' after you.: correct Ask the patient to 'take a piece of paper with their right hand' 'fold paper in half' 'place paper on floor': take paper in right hand, fold paper in half and place paper on floor Print the sentence 'CLOSE YOUR EYES' on a piece. If patient actually closes eyes then score.: followed written direction Give patient a blank piece of paper & ask to write a sentence. Score if it contains a noun & verb.: sentence contains subject and verb Ask patient to copy figure of intersecting pentagons exactly. Score if all 10 angles & 2 intersects are included.: all 10 angles present & 2 are intersected Score Score: 27 Activity of Daily Living Bathing - sponge bath, tub bath or shower: receives no assistance (gets in/out by self, if usual bathing means Dressing - getting clothes from closets & drawers, including inner/outer garments & fasteners.: gets clothes & gets completely dressed without help Toileting - going to the 'toilet room' for urine/bowel elimination & cleaning self/arranging clothes: goes to toilet room, cleans self, arranges clothes without help Transfer: moves in & out of bed and chair without help (may use support object) Continence: controls urination/bowel movements completely by self Feeding: feeds self without help Total Score: 0 Information obtained from: patient Using telephone: independent Traveling: independent Shopping: independent Preparing meals: independent Housework: independent Taking medicine: independent Managing money: independent Physical Exam Vital Signs: Last Vital Signs Pulse 85 10/12/24 15:56 Resp 14 10/12/24 15:56 BP 136/78 10/12/24 15:56 Pulse Ox 94 10/12/24 15:56 Oxygen Delivery Method Room Air 10/12/24 15:56 BMI result Body Mass Index 30.5 Assessment & Plan Assessment & Plan (1) Type 2 diabetes mellitus: Code(s): E11.9 - Type 2 diabetes mellitus without complications Qualifiers: Diabetes mellitus complication status: with hyperglycemia Diabetes mellitus computer terminal operator insulin use: with senior care use Qualified Code(s): E11.65 - Type 2 diabetes mellitus with hyperglycemia; Z79.4 - custodial (current) use of insulin (2) History of high cholesterol: Code(s): Z86.39 - Personal history of other endocrine, nutritional and metabolic disease (3) Osteoarthritis of left knee: Code(s): M17.12 - Unilateral primary osteoarthritis, left knee Qualifiers: Osteoarthritis type: primary Qualified Code(s): M17.12 - Unilateral primary osteoarthritis, left knee Plan 73 year old male presenting for MWV HRA/ADL/MMSE reviewed Diabetes followed by endocrinology. Last A1C at goal Labs ordered GI referral -colonoscopy due Dermatology referral Orders: Orders Comprehensive Met. Panel 10/12/24 E11.65 - Type 2 diabetes mellitus with hyperglycemia, Z13.0 - Encounter for screening for diseases of the blood and blood-forming organs and certain disorders involving the immune mechanism, Z79.4 - termite technician (current) use of insulin, Z86.39 - Personal history of other endocrine, nutritional and metabolic disease Lipid Panel 10/12/24 E11.65 - Type 2 diabetes mellitus with hyperglycemia, Z13.0 - Encounter for screening for diseases of the blood and blood-forming organs and certain disorders involving the immune mechanism, Z79.4 - termite technician (current) use of insulin, Z86.39 - Personal history of other endocrine, nutritional and metabolic disease Hemoglobin A1c 10/12/24 E11 - Type 2 diabetes mellitus with hyperglycemia, Z13.0 - Encounter for screening for diseases of the blood and blood-forming organs and certain disorders involving the immune mechanism, Z79.4 - termite technician (current) use of insulin, Z86.39 - Personal history of other endocrine, nutritional and metabolic disease Complete Blood Count Auto Diff 10/12/24 E11.65 - Type 2 diabetes mellitus with hyperglycemia, Z13.0 - Encounter for screening for diseases of the blood and blood-forming organs and certain disorders involving the immune mechanism, Z79.4 - custodial (current) use of insulin, Z86.39 - Personal history of other endocrine, nutritional and metabolic disease Microalbumin, Random (w Creat) 10/12/2465 - Type 2 diabetes mellitus with hyperglycemia, Z13.0 - Encounter for screening for diseases of the blood and blood-forming organs and certain disorders involving the immune mechanism, Z79.4 - custodial (current) use of insulin, Z86.39 - Personal history of other endocrine, nutritional and metabolic disease Referrals Gastroenterology Referral Z12.11 - Encounter for screening for malignant neoplasm of colon Dermatology Referral D22.9 - Melanocytic nevi, unspecified, E11.65 - Type 2 diabetes mellitus with hyperglycemia, Z79.4 - termite technician (current) use of insulin Coding Level of Care Code Medicare Subsequent (G0439) Diagnoses Type 2 diabetes mellitus with hyperglycemia, with long-term current use of insulin E11.65; Z79.4 Diabetes mellitus complication status: with hyperglycemia Diabetes mellitus senior care insulin use: with computer terminal operator use History of high cholesterol Z86.39 Primary osteoarthritis of left knee M17.12 Osteoarthritis type: primary
[2024-10-12 15:56] VITALS: BP 136/78; PULSE 85; RESP 14; O2SAT 94; BMI 30.5
== END 2024-10-12 16:32 | disposition home or self-care (01) ==
LOC: HO.HMCFM 15:40
PROVIDERS: PCP Internal Medicine; Visit Provider Internal Medicine
DX: E11.65 Type 2 diabetes mellitus with hyperglycemia (principal); Z79.4 Long term (current) use of insulin; Z86.39 Personal history of other endocrine, nutritional and metabolic disease; M17.12 Unilateral primary osteoarthritis, left knee

== ENCOUNTER 2024-10-17 07:39 | Outpatient (REF) | payer MEDICARE, OTHER, SELFPAY ==
--- OUTSIDE RECORDS SUMMARY | 2024-10-17 07:42 | XMS_ITS | Clinical Summary ---
Author Organization [facility] Address [address] [place] [id number] Phone Care Team Providers Care Type Mapper Name Role Phone Martine Louis MD Primary Care Provider + [phone] Allergies No known active allergies Medications atorvastatin [...] his glucose [facility]. [facility] reviewed from [facility] Assessment & Plan [...] getting him a freestyle zhanna 3+ from [facility] to be able to monitor his [...] managing glucose levels. [facility] Reviewed [facility] from PCP Assessment & Plan (06/03/2023 9:34 PM EDT): Control continues to improve based upon the patient's SMBG readings. No frequent or severe hypoglycemia. Will maintain his current regimen. Continue to work on eating healthy and being active. To call or message with any issues managing his glucose levels. [facility] Assessment & Plan (03/12/2023 9:36 PM EST): [...] his glucose levels. [facility] Assessment & Plan (06/07/2022 10:09 AM EDT): 71-year-old man with type 2 diabetes treated for about 5 years. Old records were not available. He has peripheral neuropathy with loss of vibratory sensation from mid [place] down and intermittent symptoms including cold feet numbness in the left toes. He also reports what sounds like background diabetic retinopathy, last visit with gill tender was in 12/2021, report is not available. [...] Team Description 10/08/2024 Refill [facility] [address] [place] [address] Brianne Cruz MA 10/04/2024 Refill [facility] [address] [place] [address] Tiffanie Mendieta PA-C Medication Refill 09/12/2024 Refill [facility] [address] [place] [address] Tiffanie Mendieta PA-C Medication Refill from Last [...] 9:00 AM EDT Office Visit [facility] [address] [place] [id number] Miracle Odell MD [address] [place] [id number] [email or web address] Health Maintenance Due Date Last Done Comments [...] O MEDICARE PART A & B HMO [facility] Address: [place] [address] MEDICARE PART A & [address] [place], [place] [id number] [facility] [place] [address] MEDICARE PART A & [facility] PART A & B [facility] HMO MEDICARE PART A & B Care Teams Type Mapper Relationship Specialty Start Date End Date Martine Louis MD [address] [place] [address] [place] [address] PCP - General Internal Medicine 06/26/24 Additional Source Comments The information contained in this document represents components of the legal health record. It is not the complete legal health record.[facility]
--- OUTSIDE RECORDS SUMMARY | 2024-10-17 07:42 | XMS_ITS | Patient Health Record ---
Author Organization [facility] Address [address] [place] [address] Care Team Providers Care Buck Presser Name Role Phone Mile (RETIRED) Alexis CURRY Primary Care Provide r Unavailable Darrick Allen Unavailable [phone] Reason For Referral No Information Medications Medication SIG (Take, Route, Frequency, Duration) Notes Start Date End Date Status Zoloft 150 mg 1 tablet Orally Once a day Active metFORMIN HCl 1000 MG 1 tablet with meal s Orally Twice a day Active ZyPREXA 5 MG 1 tablet Orally Once a day For sleep Active Simvastatin 80 MG 1 tablet in the even ing Orally Once a day Active Aspirin Adult Low Dose 81 MG 1 tablet Orally Once a day Active Suprep Bowel Prep 1 kit as directed Oral ly as directed for 1 dose 12/21/2014 Active Problems Problem Type SNOMED Code ICD Code Onset Dates Problem Status W/U Status Risk Notes Problem [id number] Encounter for screening for malignant neoplasm of colon (Z12.11) Active confirmed Problem Screening for malignant neoplasm of rectum ([id number]) Encounter for screening for malignant neoplasm of rectum (Z12.12) Active confirmed Problem [id number] Preprocedural examination (Z01.818) Active confirmed Problem [id number] Aspirin long-ter m use (Z79.82) Active confirmed Plan Of Treatment Pending Test Test Name Order Date GI BIOPSY 02/03/2015 Future Test Test Name Order Date COLONOSCOPY 12/19/2014 Insurance Providers Payer Name Payer Address Payer Phone Subscriber Number Group Number Insured Name Patient Relationship to Insured Coverage Start Date Coverage End Date [facility] [address] [place] [address] [phone] [id number] HERMANN TRUJILLO Self - patient is the insured Medical (General) History Medical History History ICD Code colonoscopy 10/30/2004---negative except for internal hemorrhoids hyperlipidemia anxiety depression NIDDM Denies [place],CVA,Lung disease,renal disease
[2024-10-17 10:09] LABS: MANUAL DIFF FLAG NO
[2024-10-17 10:16] LABS: Hematocrit 45.2 % (42.0-52.0); Hemoglobin 15.3 g/dl (14.0-18.0); Imm Gran Abs Auto 0.03 X10*3/uL (0.00-0.03); Imm Gran Pct Auto 0.6 % (0.0-0.4); Lymphocytes Absolute Auto 1.3 X10*3/uL (1.2-4.9); Mean Corpuscular HGB Conc 33.8 g/dl (31.0-36.0); Mean Corpuscular Hemoglobin 30.1 pg (27.0-33.0); Mean Corpuscular Volume 89.0 fL (80.0-98.0); NRBC Abs Auto 0.000 X10*3/uL (0.0-0.012); NRBC Pct Auto 0.0 /100WBC (0.0-0.2); Platelet Count 168 X10*3/uL (160-400); Red Blood Count 5.08 X10*6/uL (4.60-5.80); White Blood Count 4.8 X10*3/uL (4.8-10.8)
[2024-10-17 10:18] LABS: Hemoglobin A1C 261.0907 umol/L; Total Hemoglobin (HGBA1C) 3946.1153 umol/L
[2024-10-17 10:43] LABS: Alanine Aminotransferase 38 U/L (0-40); Albumin Level 4.6 g/dL (3.5-5.0); Alkaline Phosphatase 66 U/L (39-117); Anion Gap 12 (12-20); Aspartate Amino Transferase 26 U/L (5-37); Blood Urea Nitrogen 22 mg/dL (9-16); Calcium 9.2 mg/dL (8.4-10.2); Carbon Dioxide 27 mmol/L (22-29); Chloride 106 mmol/L (96-108); Cholesterol 160 mg/dL (<200); Estimated Glomerular Filt Rate > 60; HDL Cholesterol 36 mg/dL (>40); Potassium 4.0 mmol/L (3.3-5.1); Sodium 141 mmol/L (135-145); Total Protein 7.1 g/dL (6.5-8.0); Triglycerides 91 mg/dL (<150)
== END 2024-10-17 07:40 | disposition home or self-care (01) ==
LOC: HO.HMGCLDS 07:39
PROVIDERS: Visit Provider Internal Medicine
DX: Z13.0 Encounter for screening for diseases of the blood and blood-forming organs and certain disorders involving the immune mechanism (principal); E11.65 Type 2 diabetes mellitus with hyperglycemia; Z86.39 Personal history of other endocrine, nutritional and metabolic disease; Z79.4 Long term (current) use of insulin
CPT/HCPCS: 36415; 80053; 80061; 82043; 82570; 83036; 85025